=== PATIENT | male | born 1955 | race Caucasian/White ===

== ENCOUNTER → 2023-12-21 09:12 | Outpatient (REF) | payer MEDICARE, OTHER, SELFPAY | LOC: HWRAD 09:12 | PROVIDERS: ATTENDING PHYSICIAN Internal Medicine Hematology & Oncology; FAMILY PHYSICIAN Family Medicine | DX: D69.6 Thrombocytopenia, unspecified (principal) | CPT/HCPCS: 76700 ==

== ENCOUNTER 2024-03-14 03:55 | Inpatient (IN) | payer MEDICARE, OTHER, SELFPAY ==
[2024-03-13] VITALS (7 sets, daily range): BP systolic 117–147; BP diastolic 64–79; BMI 25.7
[2024-03-13 16:44] LABS: % Basophils 0.5 % (0-2); % Eosinophils 0.9 % (0-6); % Immature Granulocytes 0.2 % (0-0.5); % Lymphocytes 14.2 % (20.5-51.1); % Monocytes 14.6 % (1.7-9.3); % Neutrophils 69.6 % (42.2-75.2); Absolute Eosinophils 0.1 10^3/uL (0-0.7); Absolute Lymphocytes 1.1 10^3/uL (1.2-3.4); Absolute Monocytes 1.2 10^3/uL (0.1-0.6); Absolute Neutrophils 5.6 10^3/uL (1.4-6.5); Hematocrit 39.2 % (39.0-52.0); Hemoglobin 13.1 g/dL (13.0-18.0); Mean Corp Hgb Conc. 33.4 g/dL (33.0-37.0); Mean Corpuscular Hgb 31.2 pg (27.0-31.0); Mean Corpuscular Volume 93.3 fL (80.0-94.0); Nucleated Red Blood Cells % 0 % (-); Platelet Count 120 10^3/uL (130-400); Red Cell Dist. Width 12.3 % (11.5-14.5)
[2024-03-13 16:55] LABS: ALT (SGPT) 26 U/L (0-50); AST (SGOT) 25 U/L (17-59); Albumin 4.3 g/dl (3.5-5.0); Alkaline Phosphatase 86 U/L (38-126); Blood Urea Nitrogen 22 mg/dl (9-20); Calcium 9.7 mg/dl (8.4-10.2); Carbon Dioxide 28 mmol/L (22-30); Chloride 101 mmol/L (98-107); Glucose 127 mg/dl (70-99); Potassium 3.8 mmol/L (3.5-5.1); Sodium 138 mmol/L (135-145); Total Bilirubin 0.6 mg/dl (0.2-1.3); Total Protein 6.9 g/dl (6.3-8.2); eGFR > 60.00
[2024-03-13 17:12] LABS: Troponin I < 0.012 ng/ml
[2024-03-13] MEDS: DILAUDID 0.5 MG IV ×2 (19:46→20:53)
[2024-03-13] MEDS: NSS 500 IV (19:47)
[2024-03-13 20:12] LABS: Lipase 98 U/L (23-300)
[2024-03-13 20:15] LABS: D-Dimer 2.13 ug/mlFEU (0.00-0.50)
--- NOTE | 2024-03-13 20:21 | ED.GENMED ---
History of Present Illness
General
Chief Complaint: Chest Pain
Source: patient
Exam Limitations: none
Time Seen by Provider: 03/13/24 19:01
Nursing documentation reviewed up to this point in time: agreed with
Travel History
Have you had any contact with someone who has COVID-19?: No
Do you have any symptoms of coronavirus? Fever > 100 degrees, chills, cough, shortness of breath, sore throat, loss of taste or smell, muscle aches, or headache?: No
History of Present Illness
History of Present Illness:
pt is a 68 y/o M with h/o HTN, HLD, NIDDM newly diagnosed on metformin
here with LUQ pain radiating to L ribs and chest and shoulder x 3 days
says he worked out at the gym in the [facility] but doesn't reczall injury
he noticed with any deep breath, cough, bending over, laugh, etc the pain is bad. if he stays still the pain is better
has had a little constipation, took a dose of doculax and went a little but not normal. no fever, chills, cough, cold, urinary syptoms, nausea, vomiting
pt has had weight loss 20 pounds in the last few months which he attributed to changing his diet and starting metformin
he has had low plt and is scheduled for liver MRI next week
nothing taken for pain today
no rash.
no ches tpain.
Past History
Past History
ED Past Medical History: HTN, Hypercholesterolemia, NIDDM and Other (fatty liver)
Review of Systems
Review of Systems
Allergies reviewed?: Yes
All Other Systems: Not applicable
Phy Exam
Physical Exam
Physical Exam:
GENERAL: Alert , in no apparent distress
EYE: pupils equal and reactive
NECK: Supple
ENT: o/p clr, mmm.
CARDIAC: Regular rate and rhythm .
no murmur
LUNGS: Clear breath sounds bilaterally, no acute respiratory distress, no wheezes/rales/rhonchi
chesrt wall: notnedner to palpation but pain with breathing and movement
ABDOMEN: Soft, veryt mild LUQ tendernesss, no r/g, no cvat, normal bowel sounds
NEUROLOGICAL: Alert and oriented, no focal neuro deficits
SKIN: Warm and dry, skin intact.
MUSCULOSKELETAL: No edema, well perfused. neg edith's sign
PSYCH: Normal and appropriate interaction.
Scores
Heart Score for Chest Pain Patients
STEMI patient?: No
History: Slightly or Non-Suspicious
ECG: Nonspecific Repolarization
Age: >/= 65 years
Risk Factors: >/= 3 Risk Factors or History of CAD
Troponin: </= Normal Limit
Heart Score for Chest Pain Patients: 5
Heart Score Risk: 20.3% MACE over next 6 weeks
Course
Orders/Labs/Results
Orders:
Orders
03/13/24 16:16
Electrocardiogram (*1) Urgent
Reason for Study: Chest Pain
EKG- Treatment ONCE
03/13/24 16:23
Complete Blood Count/With Diff Urgent
Comprehensive Metabolic Panel Urgent
Lipase Urgent
Comment: ADD ON
Troponin I Urgent
03/13/24 19:41
Add On- LAB Urgent
Tests Added?: lipase
0.9% Sodium Chloride 500 ml [Nss] 500 ml IV BOLUS
HYDROmorphone [Dilaudid] 0.5 mg IV NOW STA
03/13/24 19:51
D-Dimer Urgent
03/13/24 20:19
CT Pe/abd/pel W Urgent
Reason For Exam: pleuiritic L ches tpain, + ddimer, weight loss
03/13/24 20:50
HYDROmorphone [Dilaudid] 0.5 mg IV NOW STA
03/13/24 22:06
Urinalysis Reflex To Culture Urgent
Date Specimen was Collected: 03/13/24
Time Specimen was Collected: 21:57
03/14/24 00:57
0.9% Sodium Chloride 1000 ml [Nss] 1,000 ml IV BOLUS
HYDROmorphone [Dilaudid] 1 mg IV NOW STA
Abnormal Lab Results
03/13/24 03/13/24 03/13/24
16:23 19:51 22:06
RBC 4.20 L 10^6/uL
(4.70-6.10)
MCH 31.2 H pg
(27.0-31.0)
Plt Count 120 L 10^3/uL
(130-400)
MPV 12.0 H fL
(7.4-10.4)
Absolute Lymphs (auto) 1.1 L 10^3/uL
(1.2-3.4)
Absolute Monos (auto) 1.2 H 10^3/uL
(0.1-0.6)
Lymphocytes % 14.2 L %
(20.5-51.1)
Monocytes % 14.6 H %
(1.7-9.3)
D-Dimer 2.13 H ug/mlFEU
(0.00-0.50)
BUN 22 H mg/dl
(9-20)
Glucose 127 H mg/dl
(70-99)
Urine Ketones 1+ A
(Negative)
03/13/24 16:23
03/13/24 16:23
Vital Signs
Initial and Last Documented VS:
Initial Vital Signs
Temp Pulse Resp BP Pulse Ox
99.6 F 83 16 147/79 98
03/13/24 16:11 03/13/24 16:11 03/13/24 16:11 03/13/24 16:11 03/13/24 16:11
Last Documented Vital Signs
Temp Pulse Resp BP Pulse Ox
99.9 F 74 15 128/71 94
03/13/24 23:17 03/14/24 02:00 03/14/24 02:00 03/14/24 02:00 03/14/24 02:00
MDM/Problems Addressed
Differential Diagnosis Includes:
PE, divrticulitis, pancreatitis, splenic infarct
MDM/Problems Addressed:
68 y/o M with h/o HTN, HLD has had some mild thrombocytopenia the past few months or so and has seen dr. garcia, neg w/.u; here with L sided abd pain to chest since wednesday, vitals stable, nontender abdomen, splinting on exam, pain with deep breaths;
cta neg for pe
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
small splenic infarct
hepatic lesions
intraabd PARTHA
case d/w vascular regarding splenic infarct; repeat CTA unnecessary at this time; likely all neoplastic process and compression
admit to hospitaist
*Critical Care Note
Total Time (30-74mins, 75-104mins- exclusive of procedures): Not Applicable
ED Attending Note
-
Portions of this chart may have been created with voice recognition software.� Occasional wrong word or��sound alike� substitutions may have occurred due to the inherent limitations of voice recognition software.
Discharge Plan
Departure
Patient Disposition: Admit
Date of Disposition: 03/14/24
Time of Disposition: 00:50
Admit to: Med/Surg
Presentation/result/management discussed w/ accepting MD/DO: Hospitalist
Condition: Fair
Covid-19: Not Applicable
Discharge Problem:
Splenic infarct
Prescriptions:
No Action
metformin 500 mg Tablet
1,000 mg PO DAILY
sildenafil 50 mg Tablet
50 mg PO DAILY
lisinopril-hydrochlorothiazide 20-12.5 mg Tablet
1 tab PO HS
amlodipine 5 mg Tablet
5 mg PO DAILY
folic acid 1 mg Tablet
1 mg PO DAILY
Centrum Silver Tablet
1 tab PO DAILY
rosuvastatin 10 mg Tablet
10 mg PO HS
cyanocobalamin (vitamin B-12) 1,000 mcg Capsule
1,000 mcg PO DAILY
Referrals:
Daniel Bell MD [Family Provider] -
Interventions
Interventions:
*Risk Screen - Suicide Last Done: 03/13/24 16:11
*General Assessment Last Done: 03/13/24 16:11
*Neglect/Abuse Screening Last Done: 03/13/24 16:11
ED- Fall Risk Assessment Last Done: 03/13/24 19:14
*ED COVID-19 Vaccine History Last Done: 03/13/24 19:14
ED- Cardiac Assessment Last Done: 03/13/24 23:19
Discharge Date and Time
Print Language: SENEGALESE
[2024-03-13 22:19] LABS: Urine Albumin Negative (Neg - Trace); Urine Bilirubin Negative (Negative); Urine Character Clear (Clear); Urine Color Yellow; Urine Glucose Negative (Negative); Urine Ketone 1+ (Negative); Urine Leukocyte Negative (Negative); Urine Nitrite Negative (Negative); Urine Occult Blood Negative (Negative); Urine Urobilinogen Negative (Neg - 1+)
[2024-03-14] VITALS (13 sets, daily range): BP systolic 98–150; BP diastolic 62–91; BMI 25.3
[2024-03-14] MEDS: DILAUDID 1 MG IV (01:03)
[2024-03-14] MEDS: NSS 1000 IV (01:03)
[2024-03-14] MEDS: DILAUDID 0.5 MG IV ×4 (03:51→23:45)
--- NOTE | 2024-03-14 05:05 | HPS.HSE ---
Family Physician
-
Family Physician: Daniel Bell
Chief Complaint
-
L abd pain
History of Present Illness
Patient is a 68y M with PMH significant for hypertension and recently diagnosed DM-II who presents to ED complaining of LUQ abdominal pain. Patient states that he initially appreciated discomfort in his LUQ on Wednesday afternoon. He assumed it
was muscular in origin; however, his symptoms did not seem to improve at all with time. Patient noted pain in the LUQ and in the L flank. The pain would occasionally radiate to the lower chest and to the L shoulder. Patient noted that the pain
was worse with deep breathing or with movement / exertion.
He denies any prior history of similar symptoms.
He denies any associated N/V/D, fevers / chills, etc.
Patient states that he was recently seen by Dr. Lujan for thrombocytopenia which has been persistent for about a year or so.
Recent abdominal imaging (US) revealed fatty liver change and suspected hepatic cysts. MRI abdomen was ordered as an outpatient for further evaluation.
Medical History
Past Medical History
Past Medical History: Reports Other
Additional Past Medical History:
Hypertension
DM-II
NAFLD
BRIDGETTE on CPAP
Past Surgical History: Reports Other
Additional Past Surgical History:
Left Forearm ORIF / Subsequent Removal of Hardware
Sinus Surgery
Social History
Tobacco: Non-smoker
Alcohol: Former (Previous social EtOH. Quit alcohol entirely in 10/2023.)
Drug: None
Personal:
Living: With Family
Family History
Family History: Other (Father: Parkinson's Mother: SDAT)
Allergies / Home Medications
Allergies reflects when Allergies were last updated in [facility].
Home Medications with original date entered in [facility]
Allergy/Medication List:
Allergies
Allergy/AdvReac Type Severity Reaction Status Date / Time
Penicillins Allergy Rash Verified 03/13/24 16:15
Home Medications
amlodipine 5 mg tablet 5 mg PO DAILY 03/13/24
cyanocobalamin (vitamin B-12) 1,000 mcg capsule 1,000 mcg PO DAILY 03/13/24
folic acid 1 mg tablet 1 mg PO DAILY 03/13/24
lisinopril 20 mg-hydrochlorothiazide 12.5 mg tablet 1 tab PO HS 03/13/24
metformin 500 mg tablet 1,000 mg PO DAILY 03/13/24
csyzqhatlfxs-opzbpqyw-yubmsx tablet 1 tab PO DAILY 03/13/24
rosuvastatin 10 mg tablet 10 mg PO HS 03/13/24
sildenafil 50 mg tablet 50 mg PO DAILY 03/13/24
Review of Systems
-
History Source: Patient
A 12 point ROS was completed and negative except as noted: Yes
Constitutional: Denies Fever or Chills
EENT: Denies Sore Throat
Respiratory: Denies Cough or Trouble Breathing
Cardiac: Denies Chest Pain or Palpitations
Abdomen/GI: Reports Abdominal Pain; Denies Nausea, Vomiting, Diarrhea, Constipated, Bloody Stools, Black Stools or Anorexia
: Reports Flank Pain; Denies Dysuria or Frequency
Musculoskeletal: Reports Joint Pain (L shoulder); Denies Edema
Neurological: Denies Dizzy or Headache
Psych: Denies Depression or Anxiety
Physical Exam
Vital Signs
Vital Signs
Temp Pulse Resp BP Pulse Ox
99.9 F 73 16 128/71 94
03/13/24 23:17 03/14/24 03:00 03/14/24 03:00 03/14/24 02:00 03/14/24 02:00
Physical Exam
General: Other (68y M in no acute distress.)
HEENT: Moist mucous membranes and PERRLA
Respiratory: Clear; No Wheezes, Rales or Rhonchi
Cardiac: S1/S2 and Regular Rhythm; No Murmur
GI: Soft, Non Tender, Non Distended and Normal Bowel Sounds
Musculoskeletal: No Clubbing, No Cyanosis and No Edema
Neuro: AO x 3 and Nonfocal/grossly intact
Laboratory Results
-
Laboratory Results
Total Bilirubin 0.6 mg/dl (0.2-1.3) 03/13/24 16:23
AST 25 U/L (17-59) 03/13/24 16:23
ALT 26 U/L (0-50) 03/13/24 16:23
Alkaline Phosphatase 86 U/L (38-126) 03/13/24 16:23
Troponin I < 0.012 ng/ml 03/13/24 16:23
Lipase 98 U/L (23-300) 03/13/24 16:23
Impression/Plan
-
A/P: Patient is a 68y M with PMH significant for hypertension and recently diagnosed DM-II who presents to ED complaining of LUQ abdominal pain for the past 3-4 days.
Pancreatic Tail Mass
- Admit for further evaluation and treatment.
- Suspicious for malignant process.
- Check CA 19-9.
- MRI abdomen for further evaluation.
- GI and Oncology evaluations.
- Follow for any new / worsening symptoms.
Splenic Infarct
- Suspect this is the etiology of patient's pain.
- CT suggests pancreatic impingement on a splenic artery with resultant ischemia.
- Pain control / supportive care.
- Vascular Surgery consulted for additional recommendations.
Benign Hypertension
- Stable. Continue amlodipine.
- Hold lisinopril / HCT for now.
- Adjust meds as needed.
DM-II
- New diagnosis.
- Hold metformin acutely.
- Monitor glucose and cover with SSI as needed.
DVT Prophylaxis: SCDs
Code Status: Full
[2024-03-14 06:10] LABS: Hematocrit 34.1 % (39.0-52.0); Hemoglobin 11.4 g/dL (13.0-18.0); Mean Corp Hgb Conc. 33.4 g/dL (33.0-37.0); Mean Corpuscular Hgb 30.9 pg (27.0-31.0); Mean Corpuscular Volume 92.4 fL (80.0-94.0); Platelet Count 102 10^3/uL (130-400); Red Blood Cell Count 3.69 10^6/uL (4.70-6.10); Red Cell Dist. Width 12.2 % (11.5-14.5); White Blood Cell Count 6.5 10^3/uL (4.8-10.8)
[2024-03-14 06:38] LABS: ALT (SGPT) 22 U/L (0-50); AST (SGOT) 20 U/L (17-59); Albumin 3.4 g/dl (3.5-5.0); Alkaline Phosphatase 66 U/L (38-126); Blood Urea Nitrogen 19 mg/dl (9-20); Calcium 8.7 mg/dl (8.4-10.2); Carbon Dioxide 28 mmol/L (22-30); Chloride 104 mmol/L (98-107); Direct Bilirubin 0.2 mg/dl (0.0-0.4); Estimated Creatinine Clearance 85 ml/min; Glucose 140 mg/dl (70-99); Magnesium 1.8 mg/dl (1.6-2.3); Potassium 3.7 mmol/L (3.5-5.1); Sodium 136 mmol/L (135-145); Total Bilirubin 0.5 mg/dl (0.2-1.3); Total Protein 5.8 g/dl (6.3-8.2); eGFR > 60.00
[2024-03-14 07:03] LABS: TSH Reflex To Free T4 2.02 uIU/ml (0.47-4.68)
--- NOTE | 2024-03-14 07:42 | W.PN.HOSP.TC ---
Today's Communication/Plan
-
see bold
Assessment / Plan
Assessment / Plan
HPI: 68y M with PMH significant for hypertension and recently diagnosed DM-II who presents to ED complaining of LUQ abdominal pain. Patient states that he initially appreciated discomfort in his LUQ on Wednesday afternoon. He assumed it was
muscular in origin; however, his symptoms did not seem to improve at all with time.
#Newly found pancreatic tail mass concerning for cancer w/ poss liver mets
Appreciate oncology and GI input, follow-up abdominal MRI
Patient for EUS biopsy today, follow-up CA 19�[address] Lujan
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
Pain control, no need for vascular surgery consult
#Chronic thrombocytopenia
Known to Dr. Lujan
#Newly diagnosed type 2 diabetes
Hold metformin, will need diabetic diet and sliding scale insulin when he is resumed on his diet
#Benign essential hypertension
Continue home lisinopril�hydrochlorothiazide
#DVT prophylaxis�subcu heparin
Full code
Updated family at bedside 03/14
Physical Exam
General: No acute distress
HEENT: Normocephalic, Atraumatic, EOMI, MMM
Respiratory: Clear to Auscultation bilaterally
Cardiac: Normal S1/S2, Regular Rate and Rhythm
GI: Soft, left upper quadrant is tender to palpation
Extremities: No Clubbing, Cyanosis, or Edema
Neuro: Nonfocal/Grossly Intact
Psych: Calm, Cooperative
Derm: No Visible lesions
Anticipated Discharge: 24 - 48 hours
Subjective/Interval History
-
Date of Service: March 14, 2024
Patient continues to have left-sided splenic pain.
Objective Data
-
Labs:
Laboratory Results
03/14/24
05:36
WBC 6.5
Hgb 11.4 L
Hct 34.1 L
Plt Count 102 L
Sodium 136
Potassium 3.7
Chloride 104
Carbon Dioxide 28
BUN 19
Creatinine 0.9
Glucose 140 H
Calcium 8.7
Total Bilirubin 0.5
AST 20
ALT 22
Alkaline Phosphatase 66
Vital Signs:
Vital Signs
Temp Pulse Resp BP Pulse Ox
99.9 F 73 16 128/71 94
03/13/24 23:17 03/14/24 03:00 03/14/24 03:00 03/14/24 02:00 03/14/24 02:00
[2024-03-14 08:30] LABS: Glucose - Point of Care 96 mg/dl (70-99)
[2024-03-14] MEDS: PROTONIX IV IV (08:31)
[2024-03-14] MEDS: NSS (PRESERVATIVE FREE) IV (08:31)
[2024-03-14 08:44] LABS: Glycohemoglobin (HgbA1c) 6.5 % (4.0-5.6)
--- NOTE | 2024-03-14 09:51 | CON.GI ---
Addendum entered and electronically signed by Jesika Pressley Do, MD 03/14/24 14:50:
I saw and examined the patient.
The RECLAMATION KETTLE TENDER's note was reviewed and I agree with the note.
Comment: Gentry is a 68yo M with h/o BRIDGETTE on CPAP and chronic thrombocytopenia who was admitted with acute LUQ abd pain. He has 20lb wt loss and newly diagnosed diabetes. Vitals stable. Mild distress when taking in deep breaths, TTP in epigastric
to LUQ. No jaundice. Labs reviewed LFTs normal. CT AP done with pancreatic tail mass and possible splenic infarction from focal pancreatic mass occlusion of distal splenic arterial branch.
Impression
- Acute abd pain with new pancreatic tail mass and possible splenic infarct from distal splenic arterial branch occlusion
- BRIDGETTE on CPAP
- Fatty liver
- Chronic thrombocytopenia
- DM
Recommendations
- Images reviewed with Dr Holder plan for EUS FNA today
- NPO for now, start IVF with D5
- Plan for diet after above
- LFTs normal, MRI cancel as low likelihood of choledocholithiasis
- Tumor marker pending
Above d/w family bedside, RN and hospitalist. Will follow with you
Original Note:
Consultation
-
Date/Time Consultation Requested: 03/14/24 @ 09:08
Date/Time Consultation Performed: 03/14/24 @ 09:51
Requesting Provider: Erika Miller
Performing Provider: WILLIAMS Polanco; Dr. Jesika Garrido
Reason for Consultation: pancreatic mass, splenic infarct
Medical History
Chief Complaint / HPI
Chief Complaint: LLQ pain
History of Present Illness:
The pt is a 68 yo male with a PMH significant for HTN, hypercholesterolemia, DM2, obstructive sleep apnea with CPAP use, history of colon polyps, mild chronic thrombocytopenia following with Dr. Lujan, who presented to the ER with complaints of LLQ
pain. We are being asked to evaluate for concerning findings of pancreatic mass. Patient reports that he developed acute left lower quadrant pain rating up to the left upper quadrant starting on Wednesday. He is unable to identify any pertinent
triggers of this pain. He notes that he is down about 20 pounds over the past 3-1/2 months but has cut out alcohol completely after being diagnosed with fatty liver disease and has also adjusted his diet to a mostly plant-based diet. He was also
diagnosed recently with diabetes and was placed on metformin as well. He contributes this all to his weight loss. He notes he had been drinking about 4-5 beers per week prior to stopping alcohol completely in October. He otherwise denies any
nausea, vomiting, dysphagia, odynophagia, change in bowel habits, melena, hematochezia, hematemesis, fevers, or chills. He does follow with Dr. Lujan from hematology for a history of mild but chronic thrombocytopenia. He underwent ultrasound
imaging in December which was unrevealing aside from fatty liver disease. He denies any family history of GI cancers or disorders. He denies any use of blood thinners or NSAIDs regularly. He denies any prior EGD. He had a colonoscopy done in
[address] Vance which showed diverticulosis in the entire examined colon and internal hemorrhoids otherwise was normal and was advised on a repeat colonoscopy in 5 years due to history of colon polyps. Upon evaluation in the emergency room he
underwent a CT scan which showed findings concerning for possible metastatic disease with a large 3 cm lesion in the distal pancreatic tail along with a splenic infarct, possible liver mets, and lymphadenopathy. Routine labs on admission showed WBC
8.0, hemoglobin 13.1, platelets 120,000, D-dimer 2.13, sodium 138, potassium 3.8, BUN 22, creatinine 0.9, glucose 127, total bilirubin 0.6, AST 25, ALT 26, alk phos 86, lipase 98, troponin negative x 1, TSH 2.02. He was placed on clear liquid
diet., pending MRI of the abdomen, and is being admitted for further evaluation by GI and oncology.
Past Medical History
Past Medical History: HTN, Hypercholesterolemia, NIDDM and Other (Chronic thrombocytopenia, obstructive sleep apnea)
Past Surgical History: Orthopedic (Remote history of arm surgery) and Other (Sinus surgery)
Social History
Tobacco: Non-Smoker
Alcohol: None
Drug: None
Personal:
Living: With Family
Family History
Family History: Reviewed & Not Pertinent
Allergies / Home Medications
Allergy/AdvReac Type Severity Reaction Status Date / Time
Penicillins Allergy Rash Verified 03/13/24 16:15
�Medication �Instructions �Recorded
amlodipine 5 mg tablet 5 mg PO DAILY 03/13/24
cyanocobalamin (vitamin B-12) 1,000 mcg PO DAILY 03/13/24
1,000 mcg capsule
folic acid 1 mg tablet 1 mg PO DAILY 03/13/24
lisinopril 20 1 tab PO HS 03/13/24
mg-hydrochlorothiazide 12.5 mg
tablet
sktgmfrctzyn-inpployz-vfegwe tablet 1 tab PO DAILY 03/13/24
rosuvastatin 10 mg tablet 10 mg PO HS 03/13/24
sildenafil 50 mg tablet 50 mg PO DAILYPRN PRN ed 03/13/24
metformin 500 mg tablet,extended 1,000 mg PO DAILY 03/14/24
release 24 hr
Review of Systems
-
History Source: Patient
Constitutional: Reports Weight Loss
EENT: Reports No Symptoms
Respiratory: Reports No Symptoms
Cardiac: Reports No Symptoms
Abdomen/GI: Reports Abdominal Pain (Left lower quadrant radiating up to the left upper quadrant)
: Reports No Symptoms
Musculoskeletal: Reports No Symptoms
Skin: Reports No Symptoms
Neurological: Reports No Symptoms
Vital Signs
Temp Pulse Resp BP Pulse Ox
99.9 F 70 16 113/68 98
03/13/24 23:17 03/14/24 08:24 03/14/24 08:24 03/14/24 08:24 03/14/24 08:24
Physical Exam
Exam
General: Well Developed, Well Nourished, No Apparent Distress and Comfortable
HEENT: Normocephalic, Anicteric and Atraumatic
Respiratory: Clear
Cardiac: S1/S2 and Regular Rhythm
Breast: Deferred by me
GI: Soft, Non Distended, Normal Bowel Sounds and Tender (Minimally tender upon palpation to the left upper quadrant)
Musculoskeletal: No Edema
Skin: Warm and Dry
Neuro: Awake, Alert and Oriented
Psych: Calm
Results
WBC 6.5 10^3/uL (4.8-10.8) 03/14/24 05:36
Hgb 11.4 g/dL (13.0-18.0) L 03/14/24 05:36
Hct 34.1 % (39.0-52.0) L 03/14/24 05:36
MCV 92.4 fL (80.0-94.0) 03/14/24 05:36
Plt Count 102 10^3/uL (130-400) L 03/14/24 05:36
Absolute Neuts (auto) 5.6 10^3/uL (1.4-6.5) 03/13/24 16:23
Sodium 136 mmol/L (135-145) 03/14/24 05:36
Potassium 3.7 mmol/L (3.5-5.1) 03/14/24 05:36
Chloride 104 mmol/L (98-107) 03/14/24 05:36
Carbon Dioxide 28 mmol/L (22-30) 03/14/24 05:36
BUN 19 mg/dl (9-20) 03/14/24 05:36
Creatinine 0.9 mg/dL (0.7-1.3) 03/14/24 05:36
Calcium 8.7 mg/dl (8.4-10.2) 03/14/24 05:36
Total Bilirubin 0.5 mg/dl (0.2-1.3) 03/14/24 05:36
AST 20 U/L (17-59) 03/14/24 05:36
ALT 22 U/L (0-50) 03/14/24 05:36
Alkaline Phosphatase 66 U/L (38-126) 03/14/24 05:36
Lipase 98 U/L (23-300) 03/13/24 16:23
Diagnostic Image Results:
03/14/2024 CTA A/P: IMPRESSION: 'CT angiography of the chest is negative for pulmonary embolism. Mild to moderate patchy parenchymal opacity within the posterior lungs bilaterally, most likely atelectasis. Pneumonia is possible but less likely based
on the appearance.The distal pancreatic tail is expansile and has decreased density with loss of expected pancreatic architecture, and this finding is highly suspicious for pancreatic mass/neoplasm/carcinoma. Geographic region of decreased density
within the anterior and inferior aspect of the spleen, compatible with a focal area of splenic infarction. Although not performed as a CT angiography examination of the abdomen, findings are suspicious for focal occlusion of a distal splenic artery
branch by the pancreatic tail mass. There are multiple low-density hepatic lesions within the liver, which are not completely characterized on the basis of this examination. Given the other findings of this examination, these lesions are suspicious
for hepatic metastatic lesions. Further evaluation could be performed with PET/CT scan, and/or MRI of the abdomen. Lymph nodes in the interaortocaval region, with one node measuring up to 13 mm in diameter, slightly enlarged by size criteria, and
could represent neoplastic lymphadenopathy.'
Prior GI Procedures:
EGD: None
Colonoscopy: 05/18/2022, Dr. Vance: Diverticulosis in the entire examined colon, internal hemorrhoids
Assessment / Plan
-
The pt is a 68 yo male with a PMH significant for HTN, hypercholesterolemia, DM2, obstructive sleep apnea with CPAP use, fatty liver disease, history of colon polyps, mild chronic thrombocytopenia following with Dr. Lujan, who presented to the ER
with complaints of LLQ pain, found to have an elevated D-dimer ultimately undergoing a CT angiography of the abdomen and pelvis which was negative for PE but did demonstrate a 3 cm distal pancreatic tail mass concerning for neoplasm along with
suspected splenic infarct suspicious for occlusion of the distal splenic artery branch secondary to the pancreatic tail mass with other findings of low-density hepatic lesions throughout the liver and lymph nodes in the anterior aortocaval region
concerning for metastatic disease. An MRI of the abdomen is pending at this time. He was started on a clear liquid diet and getting IV pain medication. Pending oncology evaluation.
Problem list:
-Left lower quadrant pain, found to have splenic infarct with concerning findings of a distal pancreatic tail mass of 3 and other findings concerning for possible metastatic disease on CT imaging
-Mild chronic thrombocytopenia
-History of fatty liver disease
-Type 2 diabetes
-Hyperlipidemia
-Hypertension
-Obstructive sleep apnea with CPAP use
-History of colon polyp
Recommendations:
-Etiology of left lower quadrant pain likely secondary to findings of a splenic infarct on CT imaging along with a large 3 cm distal pancreatic tail mass.
-Will await MRI imaging of the abdomen for further characterization of CT findings
-Pending MRI to consider EUS with FNA for further evaluation. Will discuss with Dr. Garrido
-Oncology evaluation pending
-Per hospitalist admitting note to consider vascular evaluation given splenic infarct findings
-PRN analgesics as per hospitalist
-I did call MRI to see the timing of the scan, which they did not have available.
-Further plans pending above
Data Reviewed
-
CT Scan: Report Reviewed by me
-
-
Thank you for consultation and allowing me to participate in the patient's care. Please call the dictaphone transcriber GI physician during the after hours with any questions or concerns.
[2024-03-14] MEDS: LIDOCAINE 4% PATCH 1 PATCH TOPICAL (10:20)
[2024-03-14 13:12] LABS: Glucose - Point of Care 70 mg/dl (70-99)
[2024-03-14] MEDS: D5/0.9% SODIUM CHLORIDE 1000 IV ×2 (14:17→23:47)
--- NOTE | 2024-03-14 15:46 | CON.ONC ---
Impression
Impression
Clinical picture concerning for pancreatic cancer, with resulting splenic infarct and possibly liver mets
Recent DM diagnosis
Chronic thrombocytopenia, known to Dr. Lujan
Plan
Plan
For EUS + biopsy today
Await CA19-9
MRI abdomen had been previously scheduled for tomorrow, would keep as planned to assess liver lesions
Known to Dr. Lujan, will arrange f/u with him in the next week or so
Will follow along while hospitalized
Patient History
History of Present Illness
68 yo M w/ recent diagnosis of DM and chronic thrombocytopenia, thought secondary to LEOS, presented with left upper quadrant pain, and imaging showed:
Distal pancreatic tail is expansile and has decreased density with loss of expected pancreatic architecture, and this finding is highly suspicious for pancreatic mass/neoplasm/carcinoma. Geographic region of decreased density within the anterior and
inferior aspect of the spleen, compatible with a focal area of splenic infarction. Although not performed as a CT angiography examination of the abdomen, findings are suspicious for focal occlusion of a distal splenic artery branch by the pancreatic
tail mass. There are multiple low-density hepatic lesions within the liver, which are not completely characterized on the basis of this examination. Given the other findings of this examination, these lesions are suspicious for hepatic metastatic
lesions. Further evaluation could be performed with PET/CT scan, and/or MRI of the abdomen. Lymph nodes in the interaortocaval region, with one node measuring up to 13 mm in diameter, slightly enlarged by size criteria, and could represent
neoplastic lymphadenopathy.
EUS with biopsy is scheduled for later today.
CA19-9 is pending.
He recently lost 20-25 lbs, though has changed his diet and stopped drinking alcohol due to fatty liver and DM diagnosis.
Past-Medical/Surgical History
Past Medical History
Past Medical History: HTN, Hypercholesterolemia, NIDDM and Other (Chronic thrombocytopenia, obstructive sleep apnea)
Past Surgical History: Orthopedic (Remote history of arm surgery) and Other (Sinus surgery)
Social History
Tobacco: Non-Smoker
Alcohol: None
Drug: None
Personal:
Living: With Family
Family History
Family History: Reviewed & Not Pertinent
Patient Medication
�Medication �Instructions �Recorded �Confirmed �Last Taken �Type
amlodipine 5 mg tablet 5 mg PO DAILY Blood Pressure 03/13/24 03/14/24 Unknown History
cyanocobalamin (vitamin B-12) 1,000 mcg PO DAILY Supplement 03/13/24 03/14/24 Unknown History
1,000 mcg capsule
folic acid 1 mg tablet 1 mg PO DAILY Supplement 03/13/24 03/14/24 Unknown History
lisinopril 20 1 tab PO HS Blood Pressure 03/13/24 03/14/24 Unknown History
mg-hydrochlorothiazide 12.5 mg
tablet
pqjkxzitoamt-yyyrpifg-dylsxi tablet 1 tab PO DAILY Supplement 03/13/24 03/14/24 Unknown History
rosuvastatin 10 mg tablet 10 mg PO HS High Cholesterol 03/13/24 03/14/24 Unknown History
sildenafil 50 mg tablet 50 mg PO DAILYPRN PRN ED 03/13/24 03/14/24 Unknown History
metformin 500 mg tablet,extended 1,000 mg PO DAILY Diabetes 03/14/24 03/14/24 Unknown History
release 24 hr
Active Medications
Generic Name Dose Route Start Last Admin
Trade Name Freq PRN Reason Stop Dose Admin
Acetaminophen 650 mg 03/14/24 04:26
Acetaminophen 325 Mg Tablet PO 04/11/24 04:25
Q4HPRN PRN
Mild Pain / Temp > 101
Dextrose 12.5 grams 03/14/24 04:26
Dextrose 50% (0.5 Grams/Ml) 50 Ml Syringe IV 04/11/24 04:25
[id number] PRN
hypoglycemia
Protocol
Glucagon 1 mg 03/14/24 04:26
Glucagon 1 Mg Vial IM 04/11/24 04:25
PRN PRN
hypoglycemia
Protocol
Hydromorphone HCl 0.5 mg 03/14/24 04:26 03/14/24 11:08
Hydromorphone 0.5 Mg/0.5 Ml Syringe IV 03/28/24 04:25 0.5 mg
Q4HPRN PRN Administration
severe pain
Dextrose/Sodium Chloride 1,000 mls @ 100 mls/hr 03/14/24 14:00 03/14/24 14:17
D5/0.9% Sodium Chloride IV 1,000 mls
.Q10H VIJAY Administration
Insulin Aspart 0 units 03/14/24 07:30 03/14/24 13:20
Insulin Aspart Low Resistance 300 Units/3 Ml Pen.Injctr SC 04/11/24 07:29 Not Given
AC VIJAY
Protocol
Lidocaine 1 patch 03/14/24 10:15 03/14/24 10:20
Lidocaine 4% Topical Patch TOPICAL 04/11/24 10:14 1 patch
DAILY VIJAY Administration
Pantoprazole Sodium 40 mg 03/14/24 08:00 03/14/24 08:31
Protonix 40 Mg Iv Push IV 04/11/24 07:59 Not Given
DAILY VIJAY
Sodium Chloride 0 flush 03/14/24 04:00
Sodium Chloride 0.9% (Flush) Syringe IV 04/11/24 03:59
PER PROTOCOL VIJAY
Sodium Chloride 10 ml 03/14/24 08:00 03/14/24 08:31
Sodium Chloride 0.9% (Preservative Free) 10 Ml Vial IV 04/11/24 07:59 Not Given
DAILY VIJAY
Review of Systems
-
All Other Systems: Not reviewed unless documented
Physical Exam
-
General: Well Developed, Well Nourished, No Apparent Distress and Comfortable
HEENT: Negative Jaundice
Skin: Warm and Dry
Psych: Calm and Intact Judgement/Insight
Labs
Lab Results
WBC 6.5 10^3/uL (4.8-10.8) 03/14/24 05:36
RBC 3.69 10^6/uL (4.70-6.10) L 03/14/24 05:36
Hgb 11.4 g/dL (13.0-18.0) L 03/14/24 05:36
Hct 34.1 % (39.0-52.0) L 03/14/24 05:36
MCV 92.4 fL (80.0-94.0) 03/14/24 05:36
MCH 30.9 pg (27.0-31.0) 03/14/24 05:36
MCHC 33.4 g/dL (33.0-37.0) 03/14/24 05:36
RDW 12.2 % (11.5-14.5) 03/14/24 05:36
Plt Count 102 10^3/uL (130-400) L 03/14/24 05:36
MPV 12.0 fL (7.4-10.4) H 03/14/24 05:36
Abs Immat Gran (auto) 0.0 10^3/uL (0-0.05) 03/13/24 16:23
Absolute Neuts (auto) 5.6 10^3/uL (1.4-6.5) 03/13/24 16:23
Absolute Lymphs (auto) 1.1 10^3/uL (1.2-3.4) L 03/13/24 16:23
Absolute Monos (auto) 1.2 10^3/uL (0.1-0.6) H 03/13/24 16:23
Absolute Eos (auto) 0.1 10^3/uL (0-0.7) 03/13/24 16:23
Absolute Basos (auto) 0.0 10^3/uL (0-0.2) 03/13/24 16:23
Immature Gran % 0.2 % (0-0.5) 03/13/24 16:23
Neutrophils % 69.6 % (42.2-75.2) 03/13/24 16:23
Lymphocytes % 14.2 % (20.5-51.1) L 03/13/24 16:23
Monocytes % 14.6 % (1.7-9.3) H 03/13/24 16:23
Eosinophils % 0.9 % (0-6) 03/13/24 16:23
Basophils % 0.5 % (0-2) 03/13/24 16:23
Creatinine 0.9 mg/dL (0.7-1.3) 03/14/24 05:36
Vital Signs
Vital Signs
Temp Pulse Resp BP Pulse Ox
99.9 F 70 16 113/68 98
03/13/24 23:17 03/14/24 08:24 03/14/24 08:24 03/14/24 08:24 03/14/24 08:24
[2024-03-14 16:19] LABS: Glucose - Point of Care 82 mg/dl (70-99)
[2024-03-14 18:30] LABS: Glucose - Point of Care 110 mg/dl (70-99)
[2024-03-14 21:27] LABS: Glucose - Point of Care 169 mg/dl (70-99)
[2024-03-14] MEDS: ORETIC 12.5 MG PO (22:01)
[2024-03-14] MEDS: ZESTRIL 20 MG PO (22:01)
[2024-03-14] MEDS: CRESTOR 10 MG PO (22:01)
[2024-03-15 00:02] VITALS: BP 120/63
[2024-03-15] MEDS: DILAUDID 0.5 MG IV ×2 (05:46→10:02)
[2024-03-15 07:00] VITALS: BP 123/69
--- NOTE | 2024-03-15 07:17 | W.PN.ONC2 ---
Today's Communication / Plan
-
S/P EUS + biopsy yesterday. Await pathology.
Await CA19-9
MRI abdomen
Discussed in general terms treatment options including surgery if localized although if metastatic he would require systemic chemotherapy.
They are very anxious and did not get into more detail pending workup results.
Regarding pain, recommend primary team start low-dose long-acting narcotic such as OxyContin or MS Contin.
I do not see any contraindication to him being discharged with close outpatient follow-up.
35 minutes reviewing basic and treatment.
Impression
Impression
Clinical picture concerning for pancreatic cancer, with resulting splenic infarct and possibly liver mets
Pain possibly from splenic infarction (suspect related to malignancy)
Recent DM diagnosis
Chronic thrombocytopenia, known to Dr. Lujan
Plan
Plan
S/P EUS + biopsy yesterday. Await pathology.
Await CA19-9
MRI abdomen had been previously scheduled for today and will try to transition from outpatient to inpatient scheduling. This is important to better assess liver lesions
Known to Dr. Lujan, will arrange f/u with him in the next week or so.
Discussed in general terms treatment options including surgery if localized although if metastatic he would require systemic chemotherapy.
They are very anxious and did not get into more detail pending workup results. is hoping to get results immediately when we hear about. I explained that this is a challenge logistically.
Regarding pain, recommend primary team start low-dose long-acting narcotic such as OxyContin or MS Contin.
I do not see any contraindication to him being discharged with close outpatient follow-up.
Will follow along while hospitalized
Subjective/Objective
Chief Complaint
ACS Heme Onc
Subjective
Patient and in room. Discussed EUS findings suggestive of a distal pancreatic cancer. Outpatient MRI was actually scheduled for this afternoon today. They were expecting to be told the entire treatment plan when I came in today. I explained
that we need to wait for the pathology, tumor markers, MRI to be sure about this diagnosis, stage, and can then discuss treatment in more appropriate detail. He is eating okay and currently appears to be relatively comfortable although when asked,
says he is having pain and taking pain medications every 4 hours. is asking about getting MRI done while he is in the hospital. She is also asked about getting a PET scan. I explained that we would start with the MRI and that PET scans are
not covered to be done inpatient and likely may not even be needed depending on further workup.
Vital Signs:
Vital Signs
Temp Pulse Resp BP Pulse Ox
98.7 F 70 20 120/63 95
03/14/24 23:02 03/14/24 23:02 03/14/24 23:02 03/14/24 23:02 03/14/24 23:02
Lab Results:
Laboratory Data
WBC 6.5 10^3/uL (4.8-10.8) 03/14/24 05:36
Hgb 11.4 g/dL (13.0-18.0) L 03/14/24 05:36
Plt Count 102 10^3/uL (130-400) L 03/14/24 05:36
eGFR > 60.00 03/14/24 05:36
Physical Exam
HEENT: No Jaundice
Cardiology: S1 and S2
Pulmonary: Clear
GI: Soft
Orders
Orders
Orders From Last 24 Hours
03/15/24 07:16
MRI Abdomen [MR Abdomen W/o & W Contrast] Routine
[2024-03-15 07:23] LABS: Glucose - Point of Care 132 mg/dl (70-99)
[2024-03-15] MEDS: NSS (PRESERVATIVE FREE) 10 ML IV (07:54)
[2024-03-15] MEDS: FOLVITE 1 MG PO (07:55)
[2024-03-15] MEDS: PROTONIX IV 40 MG IV (07:55)
[2024-03-15] MEDS: LIDOCAINE 4% PATCH 1 PATCH TOPICAL (07:55)
[2024-03-15] MEDS: VITAMIN B-12 1000 MCG PO (07:55)
--- NOTE | 2024-03-15 08:19 | W.PN.HOSP.TC ---
Today's Communication/Plan
-
Cleared by GI for discharge today
Assessment / Plan
Assessment / Plan
HPI: 68y M with PMH significant for hypertension and recently diagnosed DM-II who presents to ED complaining of LUQ abdominal pain. Patient states that he initially appreciated discomfort in his LUQ on Wednesday afternoon. He assumed it was
muscular in origin; however, his symptoms did not seem to improve at all with time.
#Newly found pancreatic tail mass concerning for cancer w/ probable metastases to the liver
Appreciate oncology and GI input, status post EUS biopsy 03/14, results pending
Abdominal MRI shows ill-defined hypoenhancement of the tail of the pancreas, highly suspicious for malignant pancreatic mass
CA 19�9 pending
Stable for discharge to follow-up with Dr. Lujan and Dr. Holder in the office
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
Pain control, no need for vascular surgery consult
#Chronic thrombocytopenia
Known to Dr. Lujan
#Newly diagnosed type 2 diabetes
Resume metformin upon discharge
#Benign essential hypertension
Continue home lisinopril�hydrochlorothiazide
#DVT prophylaxis�subcu heparin
Full code
Updated family at bedside 03/15
Physical Exam
General: No acute distress
HEENT: Normocephalic, Atraumatic, EOMI, MMM
Respiratory: Clear to Auscultation bilaterally
Cardiac: Normal S1/S2, Regular Rate and Rhythm
GI: Soft, left upper quadrant is tender to palpation
Extremities: No Clubbing, Cyanosis, or Edema
Neuro: Nonfocal/Grossly Intact
Psych: Calm, Cooperative
Derm: No Visible lesions
Anticipated Discharge: Today
Subjective/Interval History
-
Date of Service: March 15, 2024
Patient reports his left upper quadrant abdominal pain is 6 out of 10 in intensity without meds. He tolerated his diet yesterday. No fever, no vomiting.
Objective Data
-
Vital Signs:
Vital Signs
Temp Pulse Resp BP Pulse Ox
99.2 F 79 16 123/69 96
03/15/24 07:00 03/15/24 08:02 03/15/24 07:00 03/15/24 08:02 03/15/24 07:00
I&O
03/14/24 03/15/24 03/16/24
06:59 06:59 06:59
Intake Total
Balance
[2024-03-15] MEDS: D5/0.9% SODIUM CHLORIDE IV (10:01)
--- NOTE | 2024-03-15 10:41 | W.PN.GI.CBS2 ---
Today's Communication / Plan
-
Diet after MRI
Await pathology from pancreatic FNA. Dr Holder will call pt
GI will sign off please call for questions
Assessment / Plan
-
Getnry is a 68yo M with h/o BRIDGETTE on CPAP and chronic thrombocytopenia who was admitted with acute LUQ abd pain. He has 20lb wt loss and newly diagnosed diabetes. Vitals stable. Mild distress when taking in deep breaths, TTP in epigastric to LUQ.
No jaundice. Labs reviewed LFTs normal. CT AP done with pancreatic tail mass and possible splenic infarction from focal pancreatic mass occlusion of distal splenic arterial branch.
Impression
- Acute abd pain with new pancreatic tail mass and possible splenic infarct from distal splenic arterial branch occlusion
- BRIDGETTE on CPAP
- Fatty liver
- Chronic thrombocytopenia
- DM
Recommendations
- EUS with FNA on 03/14 with likely new diagnosis of pancreatic ca. Cytology pending
- MRI pending per oncology
- Diet afterwards
- Tumor marker pending
Above d/w family bedside, and hospitalist. Dr Holder will call pt with results of pathology from EUS. GI will sign off please call for questions
Subjective
Subjective
Date of Service: March 15, 2024
He feels well post EUS FNA. Abd pain improved on opioids. Tolerated turkey sandwich for dinner last night without issues. NPO for MRI liver today
Objective
Data Reviewed
Laboratory Data:
Laboratory Results
03/14/24 05:36
03/14/24 05:36
Laboratory Results
Magnesium 1.8 mg/dl (1.6-2.3) 03/14/24 05:36
Total Bilirubin 0.5 mg/dl (0.2-1.3) 03/14/24 05:36
AST 20 U/L (17-59) 03/14/24 05:36
ALT 22 U/L (0-50) 03/14/24 05:36
Alkaline Phosphatase 66 U/L (38-126) 05/07/24 05:36
Lipase 98 U/L (23-300) 03/13/24 16:23
Vital Signs and I&O:
Vital Signs
Temp Pulse Resp BP Pulse Ox
99.2 F 79 16 123/69 96
03/15/24 07:00 03/15/24 08:02 03/15/24 07:00 03/15/24 08:02 03/15/24 07:00
I&O
03/14/24 03/15/24 03/16/24
06:59 06:59 06:59
Intake Total
Balance
Physical Exam
Physical Exam
GEN: No acute distress, conversant, pleasant anxious appearing
HEENT: anicteric, extraocular movements intact, clear oropharynx without exudates
GI: soft, non-distended, LUQ tender to palpation, normal active bowel sounds, no hepatosplenomegaly
EXT: warm, well perfused, no edema bilaterally
NEURO: AAOx3, non-focal
[2024-03-15 12:36] LABS: Glucose - Point of Care 112 mg/dl (70-99)
[2024-03-15] MEDS: ROXICODONE 10 MG PO (13:57)
[2024-03-15] MEDS: MIRALAX 17 GRAMS PO (13:59)
--- NOTE | 2024-03-15 14:09 | W.DCSUMMARY ---
Discharge Summary
Discharge Data
Date of Admission: 03/14/24
Date of Discharge: 03/15/24
-
Pending Results: No
Hospital Course
Discharge diagnosis:
Newly found pancreatic tail mass concerning for cancer with probable metastases to the liver
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
Chronic thrombocytopenia
Newly diagnosed type 2 diabetes
Benign essential hypertension
Consults: GI, oncology
Procedures:
03/14/24
EUS pancreatic mass biopsy
Abdominal MRI:
1. Ill-defined hypoenhancement in the tail of the pancreas remains highly suspicious for a malignant pancreatic mass. Soft tissue sampling can be performed for confirmation.
2. Splenic infarction secondary to occlusion of a branch of the distal splenic artery.
3. Multiple liver lesions with imaging characteristics that are most compatible with hepatic metastases.
Hospital course:
68-year-old male with a past medical history newly diagnosed type 2 diabetes, hypertension, and chronic thrombocytopenia presented with left upper quadrant abdominal pain. CT of the abdomen and pelvis showed a possible pancreatic tail mass and
splenic infarction.
Patient was seen in conjunction with GI. He underwent EUS pancreatic mass biopsy. He was also seen in conjunction with oncology. Abd MRI confirms that this area is highly suspicious for a pancreatic tail mass with metastases to the liver. He and
his family were informed of the findings.
He received pain control with IV Dilaudid, and was then transitioned to oral oxycodone. He is medically stable for discharge. GI will call him with the biopsy results. He has been instructed to follow-up with his usual oncologist in the office in
1-2 weeks.
Disposition: Home self-care
Discharge planning: Required 38 minutes
Discharge Plan
-
Patient Disposition: Home (Routine Discharge)
Discharge Diagnosis/Procedures: Pancreatic tail mass concerning for malignancy, probable metastases to the liver, splenic infarction, type 2 diabetes
Condition: Fair
Diet: Diabetic, Carb Controlled
Activity: As tolerated
Driving Restrictions: As prior to admission
Activity Restrictions/Additional Instructions:
You do not have to follow-up with GI. Dr. Holder will call you with the biopsy results.
Please follow-up with your usual oncologist as soon as possible, and your primary care doctor in 1 week.
Referrals:
Ambrocio Lujan DO [Active] - in one to two weeks
Daniel Bell MD [Family Provider] - in one week
Prescriptions:
New
oxycodone 10 mg Tablet
10 mg PO Q4HPRN PRN (Reason: severe pain) Qty: 30 0RF
polyethylene glycol 3350 17 gram/dose powder
17 g PO DAILY Qty: 510 0RF
Continued
sildenafil 50 mg Tablet
50 mg PO DAILYPRN PRN (Reason: ED )
lisinopril-hydrochlorothiazide 20-12.5 mg Tablet
1 tab PO HS
amlodipine 5 mg Tablet
5 mg PO DAILY
folic acid 1 mg Tablet
1 mg PO DAILY
rbiiggyckydy-mnkgmude-cbvnyh Tablet
1 tab PO DAILY
rosuvastatin 10 mg Tablet
10 mg PO HS
cyanocobalamin (vitamin B-12) 1,000 mcg Capsule
1,000 mcg PO DAILY
metformin 500 mg Tablet Extended Release 24 Hr
1,000 mg PO DAILY
Discharge Orders:
Discharge Patient (As Directed); Ordered 03/15/24
Ordered By: Murali Garrido
Discharge Date and Time
Discharge Date/Time: 03/15/24 14:49
Print Language: ARABIC
--- NOTE | 2024-03-15 14:26 | CM ---
CM met with pt and spouse bedside
DC order noted
Pt independent and has a WW at home for use if needed
No needs noted
Discharge Disposition- home, no needs, family transport
[2024-03-15 15:42] LABS: CA 19-9 437 U/mL (<=35)
== END 2024-03-15 14:49 | disposition home or self-care (01) | DRG 436 ==
LOC: 3 WEST ACU 03:55
PROVIDERS: Internal Medicine Gastroenterology; Physician Assistant; Student in an Organized Health Care Education/Training Program; ADMITTING PHYSICIAN Hospitalist; ATTENDING PHYSICIAN Family Medicine; CONSULT PHYSICIAN Internal Medicine Gastroenterology; CONSULT PHYSICIAN Internal Medicine Hematology & Oncology; EMERGENCY PHYSICIAN Emergency Medicine; FAMILY PHYSICIAN Family Medicine
PROC: 0FBG8ZX Excision of Pancreas, Via Natural or Artificial Opening Endoscopic, Diagnostic (ICD-10-PCS; 2024-03-14)
DX: C25.2 Malignant neoplasm of tail of pancreas (principal); C78.7 Secondary malignant neoplasm of liver and intrahepatic bile duct; D73.5 Infarction of spleen; I10 Essential (primary) hypertension; D69.6 Thrombocytopenia, unspecified; E11.9 Type 2 diabetes mellitus without complications
CPT/HCPCS: 88173; 88305; 71275; 74177; 74183; 80053; 81003; 82248; 82962; 83036; 83690; 83735; 84443; 84484; 85025; 85027; 85379; 86301; 93005; 96361; 96374; 96376; 99285; A9575; Q9967

== ENCOUNTER 2024-03-20 08:13 | Outpatient (REF) | payer MEDICARE, OTHER, SELFPAY ==
[2024-03-20] VITALS (9 sets, daily range): BP systolic 51–141; BP diastolic 66–77
[2024-03-20 08:40] LABS: INR 1.08; PT 13.8 Sec (11.4-14.6)
[2024-03-20 09:43] LABS: Glucose - Point of Care 101 mg/dl (70-99)
== END 2024-03-20 14:00 | disposition home or self-care (01) ==
LOC: RADI 08:13
PROVIDERS: ATTENDING PHYSICIAN Internal Medicine Hematology & Oncology; FAMILY PHYSICIAN Family Medicine
DX: C78.7 Secondary malignant neoplasm of liver and intrahepatic bile duct (principal); C25.2 Malignant neoplasm of tail of pancreas; D68.8 Other specified coagulation defects
CPT/HCPCS: 88305; 36415; 47000; 77012; 82962; 85610; 88333; 88341; 88342; 88360; 99152; 99153

== ENCOUNTER → 2024-03-28 07:06 | Outpatient (REF) | payer MEDICARE, OTHER, SELFPAY ==
[2024-03-28 07:22] VITALS: BP 121/79; BP_SYST 65
[2024-03-28 07:23] VITALS: BMI 24.2
[2024-03-28 09:25] VITALS: BP 107/70
== END ==
LOC: RADI 07:06
PROVIDERS: ATTENDING PHYSICIAN Internal Medicine Hematology & Oncology; FAMILY PHYSICIAN Family Medicine
DX: C25.1 Malignant neoplasm of body of pancreas (principal)
CPT/HCPCS: 36561; 76937; 77001; 99152; 99153; C1788

== ENCOUNTER 2024-07-18 01:41 | Inpatient (IN) | payer MEDICARE, OTHER, SELFPAY ==
[2024-07-17 21:39] VITALS: BP 134/60
[2024-07-17 22:40] VITALS: BMI 24.4
[2024-07-17 22:42] VITALS: BP 99/61
[2024-07-17 23:00] VITALS: BP 102/54
--- NOTE | 2024-07-17 23:31 | ED.GENMED ---
History of Present Illness
General
Chief Complaint: Abnormal Lab Value
Source: patient, records and spouse
Exam Limitations: none
Time Seen by Provider: 07/17/24 23:05
Nursing documentation reviewed up to this point in time: agreed with
History of Present Illness
History of Present Illness:
68-year-old male with a past medical history of hypertension, hyperlipidemia, diabetes, pancreatic cancer (currently on chemotherapy, follows with [facility]) who presents to the emergency department for evaluation of anemia. Patient
reports that he is currently undergoing chemotherapy and had last treatment about a week ago (last Wednesday). He says that he had his typical postchemotherapy fatigue and weakness but those symptoms have actually been generally improving, this
morning had lab work drawn and was found to have severe anemia with a hemoglobin of 6.1�he says previous value 2 weeks ago was between 7 and 8. Sent to the ER to be evaluated for transfusion. He does have some positional lightheadedness but denies
any other complaints including chest pain or shortness of breath. He says his fatigue is actually generally improving. Went for a mile walk this morning. He denies any bleeding�has not noticed any black or bloody stools. He is notably on Eliquis
for DVT around his port�he has been on this for 3 weeks.
Past History
Past History
ED Past Medical History: HTN, Hypercholesterolemia, NIDDM and Other (fatty liver)
Review of Systems
Review of Systems
All Other Systems: ROS reviewed and negative except as documented in HPI and ROS
Constitutional: Reports fatigue; Denies fever or chills
Respiratory: Denies cough or trouble breathing
Cardiac: Denies chest pain or palpitations
ABD/GI: Denies abdominal pain, nausea, vomiting, bloody stools or black stools
: Denies flank pain
Musculoskeletal: Denies neck pain or back pain
Neurological: Reports dizzy; Denies headache
Phy Exam
Physical Exam
Physical Exam:
General: Awake, alert, oriented x3; chronically ill-appearing
Head: Normocephalic, atraumatic
Eyes: Conjunctiva pale
Throat: Airway intact, handling secretions
Neck: Trachea midline, supple without meningismus
Lungs: Clear to auscultation bilaterally, no wheezing, rales, rhonchi
Heart: Regular rate and rhythm, no murmurs, gallops, or rubs; right chest wall port
Abd: Soft, non distended, nontender
Rectal: (Confirmed on lab work from earlier today that WBC is normal) Brown stool, Hemoccult positive
Neuro: Cranial nerves grossly intact, speech fluid
Skin: Pale, no rash
Extremities: No edema in extremities, warm and well-perfused
Scores
Heart Failure Risk
Heart Failure Risk Score: Not Applicable
Heart Score for Chest Pain Patients
STEMI patient?: Not applicable
Withdrawal Assessment of Alcohol
Withdrawal Assessment Completed?: Not applicable
Course
Orders/Labs/Results
Orders:
Orders
07/17/24 23:29
Blood Bank Products [* Blood Bank Products] Urgent
Blood Bank Products: *Packed RBC Leuko(PRBC's)
Quantity: 2
Transfuse Today: Yes
Reason: Anemia
07/17/24 23:30
Pantoprazole [Protonix IV] 80 mg IV NOW STA
07/17/24 23:42
Type+Screen Urgent
Complete Blood Count/With Diff Urgent
Comprehensive Metabolic Panel Urgent
PTT Urgent
Prothrombin Time Urgent
07/17/24 23:59
ABO2 Urgent
BBK Wristband Number:
Associate notified that ABO2 has been ordered: [id number]
Date: 07/17/24
Time: 23:50
Bridal Stylist Sales Consultant ID: [id number]
07/18/24 00:08
Prothrombin Complex(Pcc),Human [Kcentra] 1,982.5 unit Empty Viaflex Container 100 ml [Viaflex Empty Container] 0 ml IV NOW
Does patient have a dx of serious acute active bleeding?: Yes
Does patient have prior history of HIT?: No
Abnormal Lab Results
07/17/24
23:42
RBC 1.41 L 10^6/uL
(4.70-6.10)
Hgb 4.7 L* g/dL
(13.0-18.0)
Hct 14.5 L* %
(39.0-52.0)
MCV 102.8 H fL
(80.0-94.0)
MCH 33.3 H pg
(27.0-31.0)
MCHC 32.4 L g/dL
(33.0-37.0)
RDW 17.2 H %
(11.5-14.5)
PT 16.5 H Sec
(11.4-14.6)
07/17/24 23:42
Vital Signs
Initial and Last Documented VS:
Initial Vital Signs
Temp Pulse Resp BP Pulse Ox
36.8 C 96 22 134/60 100
07/17/24 21:39 07/17/24 21:39 07/17/24 21:39 07/17/24 21:39 07/17/24 21:39
Last Documented Vital Signs
Temp Pulse Resp BP Pulse Ox
36.8 C 96 22 134/60 100
07/17/24 21:39 07/17/24 21:39 07/17/24 21:39 07/17/24 21:39 07/17/24 21:39
MDM/Problems Addressed
Differential Diagnosis Includes:
Anemia�could be secondary to chemotherapy, acute blood loss anemia, nutritional deficiency or combination thereof
MDM/Problems Addressed:
68-year-old male who is undergoing chemotherapy for pancreatic cancer presents for evaluation of anemia found on outpatient labs today with hemoglobin of 6.1. He does have fatigue but actually this is generally improving since his chemotherapy
treatment last week, also reports some positional lightheadedness but no other complaints. Heart rate is in the 90s but vital signs otherwise normal. Physical exam as above�notably his Hemoccult was positive although stool appeared brown without
bright red blood. He is on Eliquis for the past 3 weeks for a DVT around his port. Port accessed will send labs including a CBC and a CMP, coags, type and screen. Transfuse 2 units of PRBCs. Treat with Protonix for occult GI bleeding. Plan for
admission pending initial workup. Will discuss with hospitalist regarding anticoagulant reversal�at this point with vital signs stable and only one point drop from his recent hemoglobin baseline I think reasonable to hold off on Kcentra for now.
Hemoglobin returned back at 4.7�this is down from 6.1 drawn this morning�will proceed with anticoagulant reversal with Kcentra given that he has had continued drop in hemoglobin and had positive Hemoccult here (although again he has not noticed any
grossly bloody or black stools). Started on PPI infusion. Fortunately his vital signs are normal�heart rate was initially in the 90s is now in the low 80s and his blood pressure is normal. Continue to monitor closely.
Chronic conditions affecting care:
Pancreatic cancer, DVT
Acute Exacerbation and/or Progression of Chronic Illness:
Acute on chronic anemia managed with blood transfusion
*Pulse Oximetry
Patient hypoxic: no
*Critical Care Note
Total Time (30-74mins, 75-104mins- exclusive of procedures): Not Applicable
Data Reviewed
Source: patient, records and spouse
Patient Management
Discussion with other providers: Hospitalist (Discussed with hospitalist)
Escalation/DeEscalation of care consider admission/obs:
Admission indicated
ED Attending Note
-
Portions of this chart may have been created with voice recognition software.� Occasional wrong word or��sound alike� substitutions may have occurred due to the inherent limitations of voice recognition software.
Discharge Plan
Departure
Prescriptions:
No Action
sildenafil 50 mg Tablet
50 mg PO DAILYPRN PRN (Reason: ED )
lisinopril-hydrochlorothiazide 20-12.5 mg Tablet
1 tab PO HS
amlodipine 5 mg Tablet
5 mg PO DAILY
folic acid 1 mg Tablet
1 mg PO DAILY
mfxjciineige-tdwkwsfs-xdevdc Tablet
1 tab PO DAILY
rosuvastatin 10 mg Tablet
10 mg PO HS
cyanocobalamin (vitamin B-12) 1,000 mcg Capsule
1,000 mcg PO DAILY
metformin 500 mg Tablet Extended Release 24 Hr
1,000 mg PO DAILY
oxycodone 10 mg Tablet
10 mg PO Q4HPRN PRN (Reason: severe pain) Qty: 30 0RF
polyethylene glycol 3350 17 gram/dose powder
17 g PO DAILY Qty: 510 0RF
Referrals:
Emmanuel Latham MD [Family Provider] -
Interventions
Interventions:
*Risk Screen - Suicide Last Done: 07/17/24 21:39
*General Assessment Last Done: 07/17/24 22:40
*Neglect/Abuse Screening Last Done: 07/17/24 21:39
Discharge Date and Time
Print Language: [place]
[2024-07-17] MEDS: PROTONIX IV 80 MG IV (23:49)
[2024-07-18] VITALS (20 sets, daily range): BP systolic 94–126; BP diastolic 57–68; BMI 25.0
[2024-07-18] LABS: Hematocrit 14.5 % (39.0-52.0); Hemoglobin 4.7 g/dL (13.0-18.0); Mean Corp Hgb Conc. 32.4 g/dL (33.0-37.0); Mean Corpuscular Hgb 33.3 pg (27.0-31.0); Mean Corpuscular Volume 102.8 fL (80.0-94.0); Red Blood Cell Count 1.41 10^6/uL (4.70-6.10); Red Cell Dist. Width 17.2 % (11.5-14.5); White Blood Cell Count 9.1 10^3/uL (4.8-10.8)
[2024-07-18 00:02] LABS: INR 1.35; PT 16.5 Sec (11.4-14.6)
[2024-07-18 00:04] LABS: APTT 32.7 Sec (23.4-35.0)
[2024-07-18 00:26] LABS: % Basophils 0.4 % (0-2); % Eosinophils 0.3 % (0-6); % Immature Granulocytes 1.9 % (0-0.5); % Lymphocytes 9.4 % (20.5-51.1); % Monocytes 5.3 % (1.7-9.3); % Neutrophils 82.7 % (42.2-75.2); Absolute Immature Granulocytes 0.2 10^3/uL (0-0.05); Absolute Lymphocytes 0.9 10^3/uL (1.2-3.4); Absolute Monocytes 0.5 10^3/uL (0.1-0.6); Absolute Neutrophils 7.6 10^3/uL (1.4-6.5); Anisocytosis 1+; Normal RBC Morphology No; Nucleated Red Blood Cells % 0 % (-)
[2024-07-18 00:27] LABS: ALT (SGPT) 31 U/L (0-50); AST (SGOT) 27 U/L (17-59); Albumin 3.2 g/dl (3.5-5.0); Alkaline Phosphatase 166 U/L (38-126); Blood Urea Nitrogen 38 mg/dl (9-20); Calcium 8.3 mg/dl (8.4-10.2); Carbon Dioxide 20 mmol/L (22-30); Chloride 106 mmol/L (98-107); Estimated Creatinine Clearance 83 ml/min; Glucose 120 mg/dl (70-99); Hypochromasia 2+; Macrocytosis 1+; Ovalocytes 1+; Potassium 4.5 mmol/L (3.5-5.1); Sodium 140 mmol/L (135-145); Target Cells 1+; Tear Drop Red Blood Cells 1+; Total Bilirubin 0.1 mg/dl (0.2-1.3); Total Protein 5.3 g/dl (6.3-8.2); eGFR > 60.00
[2024-07-18 00:37] LABS: Platelet Count 67 10^3/uL (130-400); Stomatocytes 1+
[2024-07-18] MEDS: KCENTRA 80 UNIT IV (01:30)
--- NOTE | 2024-07-18 01:35 | HPS.HSE ---
Family Physician
-
Family Physician: Emmanuel Lathma
Chief Complaint
-
Abnormal Hgb
History of Present Illness
Patient is a 68y M with PMH significant for recently diagnosed pancreatic cancer who presents to ED for evaluation of worsening anemia. Patient was diagnosed with pancreatic cancer in march 2024. He has been followed at [facility] and is currently on
FOLFIRINOX therapy. His most recent treatment was this past Wednesday (treatment #8). He notes that his dosing has been adjusted previously due to issues with cytopenias. He does receive G-CSF on following his chemo sessions.
Patient notes that his Hgb was 7.2 prior to his last chemo session. He had repeat labs done today as an outpatient and he was called this evening and advised to present to the ED as his Hgb had decreased further.
Patient admits to increased fatigue, weakness and excessive sleepiness over the past week or so. He experiences lightheadedness and fatigue with standing. No chest pain or palpitations.
He has not appreciated any gross bleeding including epistaxis, hemoptysis, melena / hematochezia, etc.
Note: Patient was recently noted to have port-associated thrombus on the R. He was started on Eliquis about one month ago. His most recent dose of this medication was this evening at 6PM.
Medical History
Past Medical History
Past Medical History: Reports Other
Additional Past Medical History:
Pancreatic Cancer
Hypertension
DM-II
MASLD
BRIDGETTE on CPAP
RUE / Port-Associated DVT
Past Surgical History: Reports Other
Additional Past Surgical History:
Left Forearm ORIF / Subsequent Removal of Hardware
Sinus Surgery
R ACW Port Placement
Social History
Tobacco: Non-smoker
Alcohol: Former (Previous social EtOH. Quit alcohol entirely in 10/2023.)
Drug: None
Personal:
Living: With Family
Family History
Family History: Other (Father: Parkinson's Mother: SDAT)
Allergies / Home Medications
Allergies reflects when Allergies were last updated in [facility].
Home Medications with original date entered in [facility]
Allergy/Medication List:
Allergies
Allergy/AdvReac Type Severity Reaction Status Date / Time
Penicillins Allergy Rash Verified 07/17/24 21:42
Home Medications
amlodipine 5 mg tablet 5 mg PO DAILY Blood Pressure 03/13/24
cyanocobalamin (vitamin B-12) 1,000 mcg capsule 1,000 mcg PO DAILY Supplement 03/13/24
folic acid 1 mg tablet 1 mg PO DAILY Supplement 03/13/24
lisinopril 20 mg-hydrochlorothiazide 12.5 mg tablet 1 tab PO HS Blood Pressure 03/13/24
bxdsgqyfoimf-whnrpulx-vpcjcc tablet 1 tab PO DAILY Supplement 03/13/24
rosuvastatin 10 mg tablet 10 mg PO HS High Cholesterol 03/13/24
sildenafil 50 mg tablet 50 mg PO DAILYPRN PRN ED 03/13/24
metformin 500 mg tablet,extended release 24 hr 1,000 mg PO DAILY Diabetes 03/14/24
oxycodone 10 mg tablet 10 mg PO Q4HPRN PRN severe pain #30 tabs 03/15/24
polyethylene glycol 3350 17 gram/dose oral powder 17 g PO DAILY #510 grams 03/15/24
apixaban 5 mg tablet (Eliquis) 5 mg PO BID 07/18/24
Review of Systems
-
History Source: Patient
A 12 point ROS was completed and negative except as noted: Yes
Constitutional: Reports Fatigue; Denies Fever or Chills
EENT: Denies Sore Throat
Respiratory: Reports Trouble Breathing; Denies Cough
Cardiac: Denies Chest Pain or Palpitations
Abdomen/GI: Denies Abdominal Pain, Nausea, Vomiting, Diarrhea, Bloody Stools or Black Stools
: Denies Dysuria, Frequency, Flank Pain or Bleeding
Musculoskeletal: Denies Joint Pain or Edema
Neurological: Reports Dizzy and Other (LE Neuropathy); Denies Headache
Psych: Denies Depression or Anxiety
Physical Exam
Vital Signs
Vital Signs
Temp Pulse Resp BP Pulse Ox
98.2 F 75 13 102/54 100
07/17/24 21:39 07/18/24 00:30 07/18/24 00:30 07/17/24 23:00 07/18/24 00:30
Physical Exam
General: Other (Pale-appearing 68y M in no acute distress.)
HEENT: Moist mucous membranes and PERRLA
Respiratory: Clear; No Wheezes, Rales or Rhonchi
Cardiac: S1/S2 and Regular Rhythm; No Murmur
GI: Soft, Non Tender, Non Distended and Normal Bowel Sounds
Musculoskeletal: No Clubbing, No Cyanosis and No Edema
Skin: Other (R ACW site well-appearing.)
Neuro: AO x 3
Laboratory Results
-
07/17/24 23:42
07/17/24 23:42
Laboratory Results
PT 16.5 Sec (11.4-14.6) H 07/17/24 23:42
INR 1.35 07/17/24 23:42
APTT 32.7 Sec (23.4-35.0) 07/17/24 23:42
Total Bilirubin 0.1 mg/dl (0.2-1.3) L 07/17/24 23:42
AST 27 U/L (17-59) 07/17/24 23:42
ALT 31 U/L (0-50) 07/17/24 23:42
Alkaline Phosphatase 166 U/L (38-126) H 07/17/24 23:42
Impression/Plan
-
A/P: Patient is a 68y M with recently diagnosed pancreatic cancer who presents to ED for evaluation of symptomatic anemia.
Symptomatic Anemia
Pancytopenia
- Admit for further evaluation and treatment.
- Seems most likely that significant anemia is related to chemotherapy and not (entirely) gross blood loss.
- PRBCs ordered in the ED. Continue blood product support until Hgb / symptoms are improved.
- Heme / Onc evaluation for any additional recommendations.
- Follow with up physician at [facility] after discharge for any further necessary dose adjustments.
Heme Positive Stools
- Stool in the ED was brown, heme positive. No gross rectal bleeding, melena, etc.
- May be some degree of GI blood loss here - exacerbated by Eliquis - but seems likely that majority of anemia is related to chemo.
- IV PPI started in the ED.
- Eliquis reversed with KCentra in the ED.
- Hold further Eliquis acutely.
- Will ask GI to evaluate for any additional recommendations.
Pancreatic Cancer
- Followed at [facility] and currently on FOLFIRINOX. Most recent treatment was last Wednesday.
- Continue folate supplementation, etc.
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
- Oncology eval as noted above / Follow-up with [facility] after discharge.
Catheter-Associated DVT
- Patient reports thrombus appreciated on routine imaging done about one month ago.
- Has been on Eliquis since that time.
- Hold acutely given severe / symptomatic anemia at present.
- Resume when able - after any significant blood loss component to anemia has been ruled out / addressed.
Benign Hypertension
- BP currently on the lower side with anemia / fatigue.
- Hold BP medications acutely.
- Follow and resume / adjust regimen as needed.
DM-II
- Stable. Hold oral hypoglycemic medications.
- Follow glucose and cover with SSI as needed.
- Update A1C.
DVT Prophylaxis: SCDs while Eliquis on hold.
Code Status: Full
[2024-07-18] MEDS: PROTONIX 100 IV ×3 (01:44→20:47)
--- NOTE | 2024-07-18 03:20 | PTCARENOTE ---
Pt arrived to [facility] at 03:20 from the ED on a stretcher with a unit of PRBCs infusing by gravity. Pt walked from stretcher to bed. Pt AAxO x4. Pt not c/o any pain. Admission questions and full head to toe assessment complete. Pt oriented to room
and call reyes. Bed locked and in lowest position. Will continue to monitor.
[2024-07-18 08:34] LABS: Hematocrit 19.5 % (39.0-52.0); Hemoglobin 6.5 g/dL (13.0-18.0); Mean Corp Hgb Conc. 33.3 g/dL (33.0-37.0); Mean Corpuscular Volume 92.9 fL (80.0-94.0); Mean Platelet Volume 10.9 fL (7.4-10.4); Platelet Count 53 10^3/uL (130-400); Red Cell Dist. Width 22.2 % (11.5-14.5)
[2024-07-18 08:40] LABS: Blood Urea Nitrogen 31 mg/dl (9-20); Calcium 8.5 mg/dl (8.4-10.2); Carbon Dioxide 24 mmol/L (22-30); Chloride 106 mmol/L (98-107); Estimated Creatinine Clearance 106 ml/min; Glucose 102 mg/dl (70-99); Iron 33 ug/dl (49-181); Potassium 4.1 mmol/L (3.5-5.1); Sodium 139 mmol/L (135-145); eGFR > 60.00
[2024-07-18 08:50] LABS: Percent Saturation 10 % (20-50); Total Iron Binding Capacity 313 ug/dl (261-462)
[2024-07-18] MEDS: FOLVITE 1 MG PO (09:08)
[2024-07-18 09:13] LABS: Glucose - Point of Care 106 mg/dl (70-99)
--- NOTE | 2024-07-18 09:16 | CON.ONC ---
Impression
Impression
Stage IV pancreatic cancer, with liver metastases, on FOLFIRINOX chemotherapy at [facility] since March 2024
Pancytopenia secondary to chemotherapy
Port associated thrombosis, incidentally found on imaging, on Eliquis at admission
Occult heme positive stool
Plan
Plan
Agree with plans to give additional packed red blood cell transfusion today, goal hemoglobin greater than 7
I added on ferritin, would give intravenous iron if ferritin <100
Would continue to hold Eliquis, platelet count likely due to worsen before it improves
Consideration for GI workup; GI team apparently will be discussing his case with his team at [facility]
Further management per [facility] team. We will sign off but remain available if needed for specific questions.
Patient History
History of Present Illness
This is a 68-year-old man with history of pancreatic cancer, metastatic to the liver, diagnosed in March 2024. He is treated at [facility], currently on chemotherapy with FOLFIRINOX. He received his 8 dose on July 11, 2024, with
G-CSF. His treatment course has been complicated by cytopenias, requiring 1 dose delay and recent dose reductions. He has not needed transfusions previously. He reports hemoglobin was 7.2 a chemotherapy last week, and outpatient blood work showed
worsening anemia, and sent to the emergency room for evaluation. CBC showed hemoglobin of 4.7. He was transfused 2 units of packed red blood cells and hemoglobin this morning 6.5. Another unit of blood has been ordered. His white blood cell
count is 6 and platelet count is 53.
Heme testing of stools was positive, but no koko bleeding. He has been on Eliquis for incidentally found port associated thrombosis, for approximately 1 month. Eliquis was held and reversed with Kcentra.
He was seen by GI, who plans to speak with his outpatient oncologist regarding consideration for further workup.
He has been tolerating chemotherapy well, tells me that interim PET scan over the summer showed a positive response to treatment. His tumor marker is trending down significantly. He has had weight gain after initial weight loss, and chemo-induced
peripheral neuropathy.
Past-Medical/Surgical History
Past medical history, as per the HPI. Also hypertension, hyperlipidemia and sleep apnea.
Social history: Social alcohol, non-smoker, .
Patient Medication
�Medication �Instructions �Recorded �Confirmed �Last Taken �Type
amlodipine 5 mg tablet 5 mg PO DAILY Blood Pressure 03/13/24 07/18/24 03/19/24 History
cyanocobalamin (vitamin B-12) 1,000 mcg PO DAILY Supplement 03/13/24 07/18/24 03/19/24 History
1,000 mcg capsule
folic acid 1 mg tablet 1 mg PO DAILY Supplement 03/13/24 07/18/24 03/19/24 History
lisinopril 20 1 tab PO HS Blood Pressure 03/13/24 07/18/24 03/19/24 History
mg-hydrochlorothiazide 12.5 mg
tablet
rnmmxtlxsfbe-burmorux-xyluwi tablet 1 tab PO DAILY Supplement 03/13/24 07/18/24 03/19/24 History
rosuvastatin 10 mg tablet 10 mg PO HS High Cholesterol 03/13/24 07/18/24 03/19/24 History
sildenafil 50 mg tablet 50 mg PO DAILYPRN PRN ED 03/13/24 07/18/24 Unknown History
metformin 500 mg tablet,extended 1,000 mg PO DAILY Diabetes 03/14/24 07/18/24 03/19/24 History
release 24 hr
oxycodone 10 mg tablet 10 mg PO Q4HPRN PRN severe pain 03/15/24 07/18/24 Unknown Rx
#30 tabs
polyethylene glycol 3350 17 17 g PO DAILY #510 grams 03/15/24 07/18/24 03/19/24 Rx
gram/dose oral powder
apixaban 5 mg tablet (Eliquis) 5 mg PO BID 07/18/24 07/18/24 07/17/24 18:00 History
Active Medications
Generic Name Dose Route Start Last Admin
Trade Name Freq PRN Reason Stop Dose Admin
Acetaminophen 650 mg 07/18/24 03:24
Acetaminophen 325 Mg Tablet PO 08/15/24 03:23
Q4HPRN PRN
Mild Pain / Temp > 101
Dextrose 12.5 grams 07/18/24 03:24
Dextrose 50% (0.5 Grams/Ml) 50 Ml Syringe IV 08/15/24 03:23
[id number] PRN
hypoglycemia
Protocol
Folic Acid 1 mg 07/18/24 08:00 07/18/24 09:08
Folic Acid 1 Mg Tablet PO 08/15/24 07:59 1 mg
DAILY VIJAY Administration
Glucagon 1 mg 07/18/24 03:24
Glucagon 1 Mg Vial IM 08/15/24 03:23
PRN PRN
hypoglycemia
Protocol
Pantoprazole Sodium 80 mg in 100 mls @ 10 mls/hr 07/18/24 00:15 07/18/24 01:44
Protonix IV 100 mls
Q10H VIJAY Administration
8 MG/HR
Insulin Aspart 0 units 07/18/24 07:30 07/18/24 09:12
Insulin Aspart Low Resistance 300 Units/3 Ml Pen.Injctr SC 08/15/24 07:29 Not Given
AC VIJAY
Protocol
Rosuvastatin Calcium 10 mg 07/18/24 22:00
Rosuvastatin (Crestor) 10 Mg Tablet PO 08/15/24 21:59
HS VIJAY
Sodium Chloride 0 flush 07/18/24 06:00
Sodium Chloride 0.9% (Flush) Syringe IV 08/15/24 05:59
PER PROTOCOL VIJAY
Review of Systems
-
All Other Systems: Reviewed and Negative
Physical Exam
-
General: Well Developed, Well Nourished, No Apparent Distress, Comfortable and Conversant
HEENT: Moist Mucous Membranes; Negative Jaundice
Cardiology: Normal Sinus Rhythm
Pulmonary: Clear; Negative Wheezes or Rales
GI: Soft, Normal Bowel Sounds and No Organomegaly; Negative Distended
Musculoskeletal: No Clubbing, No Cyanosis and No Edema
Neurology: Non Focal, No Lateralizing Symptoms and No Word Finding Difficulty
Skin: Warm and Dry
Hematologic / Lymphatic: No Lymphadenopathy
Psych: Calm and Intact Judgement/Insight
Labs
Lab Results
WBC 6.0 10^3/uL (4.8-10.8) 07/18/24 07:51
RBC 2.10 10^6/uL (4.70-6.10) L 07/18/24 07:51
Hgb 6.5 g/dL (13.0-18.0) L* D 07/18/24 07:51
Hct 19.5 % (39.0-52.0) L* 07/18/24 07:51
MCV 92.9 fL (80.0-94.0) 07/18/24 07:51
MCH 31.0 pg (27.0-31.0) 07/18/24 07:51
MCHC 33.3 g/dL (33.0-37.0) 07/18/24 07:51
RDW 22.2 % (11.5-14.5) H 07/18/24 07:51
Plt Count 53 10^3/uL (130-400) L D 07/18/24 07:51
MPV 10.9 fL (7.4-10.4) H 07/18/24 07:51
Abs Immat Gran (auto) 0.2 10^3/uL (0-0.05) H 07/17/24 23:42
Absolute Neuts (auto) 7.6 10^3/uL (1.4-6.5) H 07/17/24 23:42
Absolute Lymphs (auto) 0.9 10^3/uL (1.2-3.4) L 07/17/24 23:42
Absolute Monos (auto) 0.5 10^3/uL (0.1-0.6) 07/17/24 23:42
Absolute Eos (auto) 0.0 10^3/uL (0-0.7) 07/17/24 23:42
Absolute Basos (auto) 0.0 10^3/uL (0-0.2) 07/17/24 23:42
Immature Gran % 1.9 % (0-0.5) H 07/17/24 23:42
Neutrophils % 82.7 % (42.2-75.2) H 07/17/24 23:42
Lymphocytes % 9.4 % (20.5-51.1) L 07/17/24 23:42
Monocytes % 5.3 % (1.7-9.3) 07/17/24 23:42
Eosinophils % 0.3 % (0-6) 07/17/24 23:42
Basophils % 0.4 % (0-2) 07/17/24 23:42
Creatinine 0.7 mg/dL (0.7-1.3) 07/18/24 07:51
Vital Signs
Vital Signs
Temp Pulse Resp BP Pulse Ox
98.0 F 74 18 119/68 99
07/18/24 07:30 07/18/24 07:30 07/18/24 07:30 07/18/24 07:30 07/18/24 07:30
[2024-07-18 09:23] LABS: Glycohemoglobin (HgbA1c) 5.4 % (4.0-5.6)
[2024-07-18 09:39] LABS: Folate > 20.0 ng/ml (2.76-20); Vitamin B12 > 1000 pg/ml (239-931)
--- NOTE | 2024-07-18 10:07 | CON.GI ---
Consultation
-
Date/Time Consultation Requested: 07/18/24
Date/Time Consultation Performed: 07/18/24
Requesting Provider: Dr. José Koenig
Performing Provider: Dr. Myrtle Pryor
Reason for Consultation: Anemia, black stool
Medical History
Chief Complaint / HPI
Chief Complaint: anemia
History of Present Illness:
Gentry Gregory is a 68 y.o. male w/ pmhx pancreatic cancer w/ liver mets (dx 03/2024) currently being managed at [facility] with FOLFIRINOX who presents for anemia found on outpatient labs. Hemoglobin found to be 4.7, previously 7.2 last week. He was
transfused with 2 units PRBC with adequate response to 6.5 this morning. Additional unit of blood ordered. He was started on Eliquis in early June 09 port-associated thromboses, reports having 2 black stools, one of which occured earlier this
morning. Otherwise, his has no GI complaints-- denies nausea, vomiting, abdominal pain, change in bowel habits or hematochezia. Heme testing in the ER was positive. He is hemodynamically stable. No prior EGD. Eliquis held on admission, last dose was
yester 07/17. He was given KCentra on admission. Started on PPI gtt.
Last dose of FOLFIRNOX given 07/11, with G-CSF.
Hgb 4.7 --> 6.5 s/p 2 units PRBC; MCV 102.8, WBC 9.1 --> 6, Plt 67 --> 53
BUN 38 -->31, Cr. 0.9
Fe 33, TIBC 313, %sat 10, Ferritin pending
Tbili 0.1, AST 27, ALT 31, Alk phos 166
EUS 03/14/2024: A mass was identified in the pancreatic tail, stage T2 Nx Mx by endosonographic criteria. FNA performed
Colonoscopy 05/18/2022: Multiple diverticula in the entire colon. Internal hemorrhoids found on retroflexion, otherwise normal study. Recommend repeat in 5 years.
Colonoscopy 09/01/2016: 6 mm tubular adenoma in the sigmoid colon. Diverticulosis in the sigmoid and descending colon. Multiple hyperplastic polyps in the rectum.
Colonoscopy 10/04/2013: Hyperplastic polyps in the rectum. Sigmoid diverticulosis. Internal hemorrhoids. Repeat colon in 3 years.
Past Medical History
Past Medical History: Cancer (pancreatic cancer), HTN, Hypercholesterolemia and Other (MASLD, BRIDGETTE, DVT)
Social History
Tobacco: Non-Smoker
Alcohol: Other (social)
Drug: None
Personal:
Living: With Family
Family History
Family History: Reviewed & Not Pertinent
Allergies / Home Medications
Allergy/AdvReac Type Severity Reaction Status Date / Time
Penicillins Allergy Rash Verified 07/17/24 21:42
�Medication �Instructions �Recorded
amlodipine 5 mg tablet 5 mg PO DAILY Blood Pressure 03/13/24
cyanocobalamin (vitamin B-12) 1,000 mcg PO DAILY Supplement 03/13/24
1,000 mcg capsule
folic acid 1 mg tablet 1 mg PO DAILY Supplement 03/13/24
lisinopril 20 1 tab PO HS Blood Pressure 03/13/24
mg-hydrochlorothiazide 12.5 mg
tablet
ybnjlriszbqe-qgkeonpb-wbtwpu tablet 1 tab PO DAILY Supplement 03/13/24
rosuvastatin 10 mg tablet 10 mg PO HS High Cholesterol 03/13/24
sildenafil 50 mg tablet 50 mg PO DAILYPRN PRN ED 03/13/24
metformin 500 mg tablet,extended 1,000 mg PO DAILY Diabetes 03/14/24
release 24 hr
oxycodone 10 mg tablet 10 mg PO Q4HPRN PRN severe pain 03/15/24
#30 tabs
polyethylene glycol 3350 17 17 g PO DAILY #510 grams 03/15/24
gram/dose oral powder
apixaban 5 mg tablet (Eliquis) 5 mg PO BID 07/18/24
Review of Systems
-
History Source: Patient and Family
All other systems: A 12 pt ROS was Negative except as stated above in HPI
Vital Signs
Temp Pulse Resp BP Pulse Ox
98.0 F 74 18 119/68 99
07/18/24 07:30 07/18/24 07:30 07/18/24 07:30 07/18/24 07:30 07/18/24 07:30
Physical Exam
Exam
General: Well Developed, Well Nourished and No Apparent Distress
GI: Soft, Non Tender, Non Distended and Normal Bowel Sounds
Results
WBC 6.0 10^3/uL (4.8-10.8) 07/18/24 07:51
Hgb 6.5 g/dL (13.0-18.0) L* D 07/18/24 07:51
Hct 19.5 % (39.0-52.0) L* 07/18/24 07:51
MCV 92.9 fL (80.0-94.0) 07/18/24 07:51
Plt Count 53 10^3/uL (130-400) L D 07/18/24 07:51
Absolute Neuts (auto) 7.6 10^3/uL (1.4-6.5) H 07/17/24 23:42
PT 16.5 Sec (11.4-14.6) H 07/17/24 23:42
INR 1.35 07/17/24 23:42
APTT 32.7 Sec (23.4-35.0) 07/17/24 23:42
Sodium 139 mmol/L (135-145) 07/18/24 07:51
Potassium 4.1 mmol/L (3.5-5.1) 07/18/24 07:51
Chloride 106 mmol/L (98-107) 07/18/24 07:51
Carbon Dioxide 24 mmol/L (22-30) 07/18/24 07:51
BUN 31 mg/dl (9-20) H 07/18/24 07:51
Creatinine 0.7 mg/dL (0.7-1.3) 07/18/24 07:51
Calcium 8.5 mg/dl (8.4-10.2) 07/18/24 07:51
Total Bilirubin 0.1 mg/dl (0.2-1.3) L 07/17/24 23:42
AST 27 U/L (17-59) 07/17/24 23:42
ALT 31 U/L (0-50) 07/17/24 23:42
Alkaline Phosphatase 166 U/L (38-126) H 07/17/24 23:42
Diagnostic Image Results:
Prior GI Procedures:
EGD:
Colonoscopy:
Assessment / Plan
-
68 y.o. male w/ pmhx pancreatic cancer w/ liver mets (dx 03/2024) on FOLFIRINOX w/ course complicated by port-associated thrombus on eliquis presents with anemia and black stool concerning for GI bleeding.
#Anemia, black stool- c/f UGI bleed vs. small bowel vs. right colonic source, recently started on Eliquis
-Hgb 4.7 --> 6.5, s/p 2 units of PRBC, pending additional unit
-he remains hemodynamically stable
-2 large peripheral gauge IVs, IVF
-active T&C
-Last dose eliquis on 07/17, given kcentra in ED
-discussed with both oncologist at [facility] (Dr. Yanes) and patient/family, will plan to perform EGD tomorrow for further evaluation
-PPI gtt
-okay for clears, NPO PMN
-ferritin pending, per oncology, give IV iron if <100
Data Reviewed
-
Time spent with patient (in minutes): >75 minutes speaking with patient, family and outpatient oncologist
-
-
Thank you for consultation and allowing me to participate in the patient's care. Please call the [facility] physician during the after hours with any questions or concerns.
--- NOTE | 2024-07-18 10:15 | W.PN.UPDATE ---
Update Note
Progress Note Update
Nonbillable note. Seen and examined independent of overnight physician. Denies feeling lightheaded dizzy or fatigued. Denies any hematuria or hematochezia or melanotic stools.
General: Other (Pale-appearing 68y M in no acute distress.)
HEENT: Moist mucous membranes and PERRLA
Respiratory: Clear; No Wheezes, Rales or Rhonchi
Cardiac: S1/S2 and Regular Rhythm; No Murmur
GI: Soft, Non Tender, Non Distended and Normal Bowel Sounds
Musculoskeletal: No Clubbing, No Cyanosis and No Edema
Skin: Other (R ACW site well-appearing.)
Neuro: AO x 3
A/P: Patient is a 68y M with recently diagnosed pancreatic cancer who presents to ED for evaluation of symptomatic anemia.
Symptomatic Anemia
Pancytopenia
- Admit for further evaluation and treatment.
- Seems most likely that significant anemia is related to chemotherapy and not (entirely) gross blood loss.
- Hgb 6.5 and will order additional unit of PRBC and recheck h/h afterwards.
- Heme / Onc evaluation for any additional recommendations.
- Follow with up physician at [facility] after discharge for any further necessary dose adjustments.
Heme Positive Stools
- Stool in the ED was brown, heme positive. No gross rectal bleeding, melena, etc.
- May be some degree of GI blood loss here - exacerbated by Eliquis - but seems likely that majority of anemia is related to chemo.
- IV PPI started in the ED.
- Eliquis reversed with KCentra in the ED.
- Hold further Eliquis acutely.
- Will ask GI to evaluate for any additional recommendations.
Pancreatic Cancer
- Followed at [facility]] and currently on FOLFIRINOX. Most recent treatment was last Wednesday.
- Continue folate supplementation, etc.
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
- Oncology eval as noted above / Follow-up with [facility]] after discharge.
Catheter-Associated DVT
- Patient reports thrombus appreciated on routine imaging done about one month ago.
- Has been on Eliquis since that time.
- Hold acutely given severe / symptomatic anemia at present.
- Resume when able - after any significant blood loss component to anemia has been ruled out / addressed.
Benign Hypertension
- BP currently on the lower side with anemia / fatigue.
- Hold BP medications acutely.
- Follow and resume / adjust regimen as needed.
DM-II
- Stable. Hold oral hypoglycemic medications.
- Follow glucose and cover with SSI as needed.
- Update A1C.
DVT Prophylaxis: SCDs while Eliquis on hold.
Code Status: Full
Discussed with multiple family members at bedside.
[2024-07-18 12:07] LABS: Glucose - Point of Care 118 mg/dl (70-99)
--- NOTE | 2024-07-18 14:47 | CM ---
Met with pt and his at bedside
Pt lives with his in a 2 story home; 2 steps to enter, 10 steps to 2nd fl
Independent, retired, driving
DME - CPAP
SNF/HH - denies past hx
Has ride at discharge
PCP - Emmanuel Latham
Pharm - [facility]
CM will follow for d/c needs
Plan - anticipate home no needs when medically ready
[2024-07-18] MEDS: DULCOLAX 10 MG PO (15:59)
[2024-07-18] MEDS: MIRALAX 51 GRAMS PO ×3 (16:01→21:54)
[2024-07-18 16:36] LABS: Hematocrit 22.4 % (39.0-52.0); Hemoglobin 7.5 g/dL (13.0-18.0)
[2024-07-18 17:33] LABS: Glucose - Point of Care 86 mg/dl (70-99)
[2024-07-18 21:30] LABS: Glucose - Point of Care 99 mg/dl (70-99)
[2024-07-18] MEDS: CRESTOR 10 MG PO (22:00)
[2024-07-19] VITALS (7 sets, daily range): BP systolic 14–131; BP diastolic 57–70; PULSE 76–90
[2024-07-19 05:49] LABS: Glucose - Point of Care 109 mg/dl (70-99)
[2024-07-19] MEDS: PROTONIX 100 IV (06:15)
[2024-07-19] MEDS: FOLVITE PO (07:50)
[2024-07-19 10:24] LABS: Hematocrit 23.1 % (39.0-52.0); Hemoglobin 7.7 g/dL (13.0-18.0); Mean Corp Hgb Conc. 33.3 g/dL (33.0-37.0); Mean Corpuscular Hgb 31.2 pg (27.0-31.0); Mean Corpuscular Volume 93.5 fL (80.0-94.0); Mean Platelet Volume 11.6 fL (7.4-10.4); Platelet Count 46 10^3/uL (130-400); Red Blood Cell Count 2.47 10^6/uL (4.70-6.10); Red Cell Dist. Width 20.1 % (11.5-14.5); White Blood Cell Count 5.8 10^3/uL (4.8-10.8)
[2024-07-19 11:08] LABS: % Eosinophils 0.3 % (0-6); % Immature Granulocytes 1.4 % (0-0.5); % Lymphocytes 8.7 % (20.5-51.1); % Monocytes 7.4 % (1.7-9.3); % Neutrophils 81.2 % (42.2-75.2); Absolute Basophils 0.1 10^3/uL (0-0.2); Absolute Immature Granulocytes 0.1 10^3/uL (0-0.05); Absolute Lymphocytes 0.5 10^3/uL (1.2-3.4); Absolute Monocytes 0.4 10^3/uL (0.1-0.6); Absolute Neutrophils 4.7 10^3/uL (1.4-6.5); Nucleated Red Blood Cells % 0 % (-)
--- NOTE | 2024-07-19 11:30 | W.PN.HOSP.TC ---
Addendum entered and electronically signed by Adrian Holt MD 07/19/24 13:53:
Discussed case with oncology Dr. Astudillo and okay to restart Eliquis as gastrointestinal workup was negative.
Discussed case with GI plan for outpatient video capsule endoscopy and okay for discharge. GI discussed with patient primary oncology at [facility]
More than 30 minutes spent in discharge including
Final examination of the patient
Summarizing hospital stay
Instructions for continuing care to all relevant caregivers
Preparation of discharge records, prescriptions, and referral forms
Total time spent (in minutes): 58
Original Note:
Today's Communication/Plan
-
EGD/Colon
GI recs
Assessment / Plan
Assessment / Plan
General: Other (Pale-appearing 68y M in no acute distress.)
HEENT: Moist mucous membranes and PERRLA
Respiratory: Clear; No Wheezes, Rales or Rhonchi
Cardiac: S1/S2 and Regular Rhythm; No Murmur
GI: Soft, Non Tender, Non Distended and Normal Bowel Sounds
Musculoskeletal: No Clubbing, No Cyanosis and No Edema
Skin: Other (R ACW site well-appearing.)
Neuro: AO x 3
A/P: Patient is a 68y M with recently diagnosed pancreatic cancer who presents to ED for evaluation of symptomatic anemia.
Symptomatic Anemia
Pancytopenia
- Admit for further evaluation and treatment.
- Seems most likely that significant anemia is related to chemotherapy and not (entirely) gross blood loss.
- Hgb 7.7 s/p 3u of PRBC so far. Ferritin >100.
- Heme / Onc evaluation for any additional recommendations.
- Follow with up physician at [facility] after discharge for any further necessary dose adjustments.
Heme Positive Stools
- Stool in the ED was brown, heme positive. No gross rectal bleeding, melena, etc.
- May be some degree of GI blood loss here - exacerbated by Eliquis - but seems likely that majority of anemia is related to chemo.
- IV PPI started in the ED.
- Eliquis reversed with KCentra in the ED.
- Hold further Eliquis acutely.
- Plan for EGD/Colon later today.
- Await further Gi recs post procedure. Restart Eliquis pending GI clearance.
Pancreatic Cancer
- Followed at [facility] and currently on FOLFIRINOX. Most recent treatment was last week.
- Continue folate supplementation, etc.
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
- Oncology eval as noted above / Follow-up with [facility] after discharge.
Catheter-Associated DVT
- Patient reports thrombus appreciated on routine imaging done about one month ago.
- Has been on Eliquis since that time.
- Hold acutely given severe / symptomatic anemia at present.
- Resume when able - after any significant blood loss component to anemia has been ruled out / addressed.
Benign Hypertension
- Restart BP with hold parameters.
- Follow and resume / adjust regimen as needed.
DM-II
- Stable. Hold oral hypoglycemic medications.
- Follow glucose and cover with SSI as needed.
.
DVT Prophylaxis: SCDs while Eliquis on hold.
Code Status: Full
Discussed with multiple family members at bedside.
Anticipated Discharge: Within 24 hours
Subjective/Interval History
-
Date of Service: July 19, 2024
no abd pain
Objective Data
-
Labs:
Laboratory Results
07/19/24
09:51
WBC 5.8
Hgb 7.7 L
Hct 23.1 L
Plt Count 46 L
Vital Signs:
Vital Signs
Temp Pulse Resp BP Pulse Ox
98.0 F 64 18 116/69 98
07/19/24 07:15 07/19/24 07:15 07/19/24 07:15 07/19/24 07:15 07/19/24 07:15
I&O
07/18/24 07/19/24 07/20/24
06:59 06:59 06:59
Intake Total 500 / 500 2660 / 2660
Balance 500 / 500 2660 / 2660
[2024-07-19 12:01] LABS: Glucose - Point of Care 107 mg/dl (70-99)
--- NOTE | 2024-07-19 12:26 | CM ---
Case management following for discharge needs
Chart reviewed
Had endoscopy and colonoscopy today
GI following
[facility] for cancer treatment
Plan - anticipate home no needs when medically stable
--- NOTE | 2024-07-19 12:35 | PTCARENOTE ---
Received patient from GI/[facility] AAOx[facility], no c/o pain. Patient eating sandwich and tolerating PO liquids. Spouse and family at bedside. Patient eager to gome home, physician made aware.
--- NOTE | 2024-07-19 13:52 | W.DCSUMMARY ---
Discharge Summary
Discharge Data
Date of Admission: 07/18/24
Date of Discharge: 07/19/24
-
Pending Results: No
Hospital Course
68-year-old male past medical history of diabetes, hypertension, catheter associated DVT, pancreatic cancer on chemotherapy, was presenting from home with weakness. Patient was found to symptomatic anemia with severely low hemoglobin admission.
Required 2 L PRBC hemoglobin up trended to 7.7. GI was consulted. Patient was on a PPI. Patient on Eliquis status post reversal Kcentra in the ER. Patient underwent endoscopy colonoscopy with no active signs of bleeding. Patient will follow-up
with GI as outpatient for video capsule study. Discussed case with oncology Dr. Astudillo and andrea to restart Eliquis as gastrointestinal workup was negative. Discussed case with GI plan for outpatient video capsule endoscopy and andrea for discharge.
GI discussed with patient primary oncology at [facility].
Discharge Plan
-
Patient Disposition: Home (Routine Discharge)
Discharge Diagnosis/Procedures: Symptomatic Anemia
Pancytopenia
Blood transfusion
s/p EGD and colonoscopy
Condition: Fair
Diet: As tolerated
Activity: As tolerated
Driving Restrictions: As prior to admission
Blood Work: cbc in 1 week via primary doctor or oncology
Referrals:
Cheli Pryor DO [Active] - None (f/u for video capsule endoscopy)
Emmanuel Latham MD [Family Provider] -
Prescriptions:
Continued
sildenafil 50 mg Tablet
50 mg PO DAILYPRN PRN (Reason: ED )
lisinopril-hydrochlorothiazide 20-12.5 mg Tablet
1 tab PO HS
amlodipine 5 mg Tablet
5 mg PO DAILY
folic acid 1 mg Tablet
1 mg PO DAILY
gksggvtnjtrg-pdwmyari-kaqcoc Tablet
1 tab PO DAILY
rosuvastatin 10 mg Tablet
10 mg PO HS
cyanocobalamin (vitamin B-12) 1,000 mcg Capsule
1,000 mcg PO DAILY
metformin 500 mg Tablet Extended Release 24 Hr
1,000 mg PO DAILY
oxycodone 10 mg Tablet
10 mg PO Q4HPRN PRN (Reason: severe pain) Qty: 30 0RF
polyethylene glycol 3350 17 gram/dose powder
17 g PO DAILY Qty: 510 0RF
Eliquis 5 mg Tablet
5 mg PO BID
Discharge Orders:
Discharge Patient (As Directed); Ordered 07/19/24
Ordered By: Adrian Holt
Discharge Date and Time
Discharge Date/Time: 07/19/24 15:06
Print Language: KAZAKH
== END 2024-07-19 15:06 | disposition home or self-care (01) | DRG 809 ==
LOC: 2 SOUTH 01:41
PROVIDERS: ADMITTING PHYSICIAN Hospitalist; ATTENDING PHYSICIAN Hospitalist; CONSULT PHYSICIAN Internal Medicine; EMERGENCY PHYSICIAN Emergency Medicine; FAMILY PHYSICIAN Internal Medicine; OTHER PHYSICIAN Internal Medicine Hematology & Oncology
PROC: 30283B1 Transfusion of Nonautologous 4-Factor Prothrombin Complex Concentrate into Vein, Percutaneous Approach (ICD-10-PCS; 2024-07-18)
PROC: 30233N1 Transfusion of Nonautologous Red Blood Cells into Peripheral Vein, Percutaneous Approach (ICD-10-PCS; 2024-07-18)
PROC: 0DB48ZX Excision of Esophagogastric Junction, Via Natural or Artificial Opening Endoscopic, Diagnostic (ICD-10-PCS; 2024-07-19)
PROC: 0DB78ZX Excision of Stomach, Pylorus, Via Natural or Artificial Opening Endoscopic, Diagnostic (ICD-10-PCS; 2024-07-19)
PROC: 0DB68ZX Excision of Stomach, Via Natural or Artificial Opening Endoscopic, Diagnostic (ICD-10-PCS; 2024-07-19)
PROC: 0DJD8ZZ Inspection of Lower Intestinal Tract, Via Natural or Artificial Opening Endoscopic (ICD-10-PCS; 2024-07-19)
DX: D61.810 Antineoplastic chemotherapy induced pancytopenia (principal); C25.9 Malignant neoplasm of pancreas, unspecified; C78.7 Secondary malignant neoplasm of liver and intrahepatic bile duct; D68.32 Hemorrhagic disorder due to extrinsic circulating anticoagulants; K76.0 Fatty (change of) liver, not elsewhere classified; E11.9 Type 2 diabetes mellitus without complications; I10 Essential (primary) hypertension; D62 Acute posthemorrhagic anemia; G62.0 Drug-induced polyneuropathy; K22.89 Other specified disease of esophagus; E78.00 Pure hypercholesterolemia, unspecified; G47.33 Obstructive sleep apnea (adult) (pediatric); T45.1X5A Adverse effect of antineoplastic and immunosuppressive drugs, initial encounter; T45.515A Adverse effect of anticoagulants, initial encounter; K57.30 Diverticulosis of large intestine without perforation or abscess without bleeding; K44.9 Diaphragmatic hernia without obstruction or gangrene; K31.89 Other diseases of stomach and duodenum; K29.70 Gastritis, unspecified, without bleeding; K64.8 Other hemorrhoids; R19.5 Other fecal abnormalities; Z79.01 Long term (current) use of anticoagulants; Z79.84 Long term (current) use of oral hypoglycemic drugs; Z79.899 Other long term (current) drug therapy; Z86.79 Personal history of other diseases of the circulatory system; Z86.010 Personal history of colon polyps; Z88.0 Allergy status to penicillin
CPT/HCPCS: 88305; 80048; 80053; 82607; 82728; 82746; 82962; 83036; 83540; 83550; 85014; 85018; 85025; 85027; 85610; 85730; 86850; 86900; 86901; 86920; 88342; 96374; 99285; J7168; P9016

== ENCOUNTER 2024-09-09 10:16 | Emergency (ER) | payer MEDICARE, OTHER, SELFPAY ==
[2024-09-09] VITALS (18 sets, daily range): BP systolic 115–143; BP diastolic 62–95
--- NOTE | 2024-09-09 10:30 | ED.GENMED ---
History of Present Illness
General
Chief Complaint: Abnormal Lab Value
Source: patient
Exam Limitations: none
Time Seen by Provider: 09/09/24 10:30
Nursing documentation reviewed up to this point in time: agreed with
History of Present Illness
History of Present Illness:
Patient is a 68-year-old male with pancreatic cancer stage IV currently being treated at [place] [facility]. Patient is presently receiving chemotherapy he has for the past 6 months 11 treatments He is due for chemo this coming Wednesday. He was sent here
for low hemoglobin of 6.5 . Patient feels mildly tired. Patient denies any black or dark stools. In July patient was here for symptomatic anemia and had black stools at that time however had normal endoscopy and colonoscopy. He had an
outpatient capsule endoscopy which also did not show any bleeding.
Past History
Past History
ED Past Medical History: HTN, Hypercholesterolemia, NIDDM and Other (fatty liver)
Review of Systems
Review of Systems
Allergies reviewed?: Yes
Other source history: family
All Other Systems: ROS reviewed and negative except as documented in HPI and ROS
Constitutional: Reports fatigue; Denies fever
EENT: Reports no symptoms
Respiratory: Reports no symptoms
Cardiac: Reports no symptoms
ABD/GI: Reports no symptoms; Denies abdominal pain, nausea, vomiting, diarrhea or black stools
: Reports no symptoms
Musculoskeletal: Reports no symptoms
Skin: Reports no symptoms
Psychiatric: Reports no symptoms
Phy Exam
General Physical Exam
General Presentation: no apparent distress
General age: appears stated age
General Skin: warm and dry
General Habitus: normal
General Mental: alert
General Hydration: appears well hydrated
Cardiovascular Exam
Cardiovascular Exam: regular rate/rhythm, no murmur and normal peripheral pulses
Pulmonary Exam
Pulmonary Exam: lungs clear and no respiratory distress
Gastrointestinal Exam
Gastrointestinal Exam: non tender, soft and other (brown stool heme neg)
Course
Orders/Labs/Results
Orders:
Orders
09/09/24 10:31
IV Insert/Care/Rem.- Treatment PRN
09/09/24 10:52
Type+Screen Urgent
Complete Blood Count/With Diff Urgent
Comprehensive Metabolic Panel Urgent
09/09/24 11:39
* Blood Bank Products Urgent
'[facility] Orders: Eh/jarett
Blood Bank Products: *Packed RBC Leuko(PRBC's)
Quantity: 2
Transfuse Today: Yes
Reason: Anemia
09/09/24 11:40
IV Insert/Care/Rem.- Treatment PRN
Abnormal Lab Results
09/09/24
10:52
RBC 2.29 L 10^6/uL
(4.70-6.10)
Hgb 6.6 L* g/dL
(13.0-18.0)
Hct 20.9 L* %
(39.0-52.0)
MCHC 31.6 L g/dL
(33.0-37.0)
RDW 18.8 H %
(11.5-14.5)
Plt Count 94 L 10^3/uL
(130-400)
MPV 11.5 H fL
(7.4-10.4)
Abs Immat Gran (auto) 0.1 H 10^3/uL
(0-0.05)
Absolute Lymphs (auto) 0.8 L 10^3/uL
(1.2-3.4)
Absolute Monos (auto) 1.1 H 10^3/uL
(0.1-0.6)
Immature Gran % 1.1 H %
(0-0.5)
Lymphocytes % 13.5 L %
(20.5-51.1)
Monocytes % 18.4 H %
(1.7-9.3)
Glucose 130 H mg/dl
(70-99)
Alkaline Phosphatase 138 H U/L
(38-126)
Total Protein 6.1 L g/dl
(6.3-8.2)
Crossmatch IS Only See Detail
09/09/24 10:52
09/09/24 10:52
Vital Signs
Initial and Last Documented VS:
Initial Vital Signs
Temp Pulse Resp BP Pulse Ox
97.6 F 72 18 138/70 100
09/09/24 10:17 09/09/24 10:17 09/09/24 10:17 09/09/24 10:17 09/09/24 10:17
Last Documented Vital Signs
Temp Pulse Resp BP Pulse Ox
97.8 F 71 18 129/69 100
09/09/24 15:32 09/09/24 15:32 09/09/24 15:32 09/09/24 15:32 09/09/24 15:32
MDM/Problems Addressed
Differential Diagnosis Includes:
Not limited to anemia pancreatic cancer
MDM/Problems Addressed:
Patient is a 68-year-old male with stage IV pancreatic cancer currently receiving chemotherapy treated at [place] [facility] presents with low hemoglobin. Patient's hemoglobin today is 6.6 he denies any dark or black stools. He has brown heme-negative
stool. Is nontachycardic no acute distress nonhypoxic stable vital signs. Will plan to transfuse 2 units of packed red blood cells then stable for discharge home patient is scheduled for his chemotherapy on Wednesday. Platelets are 94,000 which is
improved from Jul 2024.
Chronic conditions affecting care:
Pancreatic cancer
*Critical Care Note
Total Time (30-74mins, 75-104mins- exclusive of procedures): Not Applicable
ED Attending Note
-
Portions of this chart may have been created with voice recognition software.� Occasional wrong word or��sound alike� substitutions may have occurred due to the inherent limitations of voice recognition software.
Discharge Plan
Departure
Patient Disposition: Home (Routine Discharge)
Date of Disposition: 09/09/24
Time of Disposition: 15:17
Patient with high blood pressure during this ER visit?: No
Condition: Fair
Covid-19: Not Applicable
Discharge Problem:
Anemia
Prescriptions:
No Action
sildenafil 50 mg Tablet
50 mg PO DAILYPRN PRN (Reason: ED )
lisinopril-hydrochlorothiazide 20-12.5 mg Tablet
1 tab PO HS
folic acid 1 mg Tablet
1 mg PO DAILY
mwmlzfsdlxeg-jkxeonic-bpkumj Tablet
1 tab PO DAILY
rosuvastatin 10 mg Tablet
10 mg PO HS
cyanocobalamin (vitamin B-12) 1,000 mcg Capsule
1,000 mcg PO DAILY
metformin 500 mg Tablet Extended Release 24 Hr
1,000 mg PO DAILY
oxycodone 10 mg Tablet
10 mg PO Q4HPRN PRN (Reason: severe pain) Qty: 30 0RF
polyethylene glycol 3350 17 gram/dose powder
17 g PO DAILY Qty: 510 0RF
Eliquis 5 mg Tablet
5 mg PO BID
Referrals:
Emmanuel Latham MD [Family Provider] -
Activity Restrictions/Additional Instructions:
Your hemoglobin today was 6.6. You were transfused 2 units of packed red blood cells. Follow-up with your oncologist as scheduled and return if any worsening of symptoms.
Have your blood work checked as per your oncologist
Interventions
Interventions:
*Risk Screen - Suicide Last Done: 09/09/24 10:17
*General Assessment Last Done: 09/09/24 10:17
*Neglect/Abuse Screening Last Done: 09/09/24 10:17
ED- Fall Risk Assessment Last Done: 09/09/24 10:47
*ED COVID-19 Vaccine History Last Done: 09/09/24 10:41
Discharge Date and Time
Print Language: FRISIAN
[2024-09-09 11:05] LABS: % Basophils 0.7 % (0-2); % Eosinophils 0.7 % (0-6); % Immature Granulocytes 1.1 % (0-0.5); % Lymphocytes 13.5 % (20.5-51.1); % Monocytes 18.4 % (1.7-9.3); % Neutrophils 65.6 % (42.2-75.2); Absolute Immature Granulocytes 0.1 10^3/uL (0-0.05); Absolute Lymphocytes 0.8 10^3/uL (1.2-3.4); Absolute Monocytes 1.1 10^3/uL (0.1-0.6); Absolute Neutrophils 3.8 10^3/uL (1.4-6.5); Hematocrit 20.9 % (39.0-52.0); Hemoglobin 6.6 g/dL (13.0-18.0); Mean Corp Hgb Conc. 31.6 g/dL (33.0-37.0); Mean Corpuscular Hgb 28.8 pg (27.0-31.0); Mean Corpuscular Volume 91.3 fL (80.0-94.0); Mean Platelet Volume 11.5 fL (7.4-10.4); Nucleated Red Blood Cells % 0 % (-); Platelet Count 94 10^3/uL (130-400); Red Blood Cell Count 2.29 10^6/uL (4.70-6.10); Red Cell Dist. Width 18.8 % (11.5-14.5); White Blood Cell Count 5.7 10^3/uL (4.8-10.8)
[2024-09-09 11:25] LABS: ALT (SGPT) 27 U/L (0-50); AST (SGOT) 29 U/L (17-59); Albumin 3.8 g/dl (3.5-5.0); Alkaline Phosphatase 138 U/L (38-126); Blood Urea Nitrogen 17 mg/dl (9-20); Calcium 8.9 mg/dl (8.4-10.2); Carbon Dioxide 26 mmol/L (22-30); Chloride 105 mmol/L (98-107); Glucose 130 mg/dl (70-99); Sodium 142 mmol/L (135-145); Total Bilirubin 0.3 mg/dl (0.2-1.3); Total Protein 6.1 g/dl (6.3-8.2); eGFR > 60.00
== END 2024-09-09 18:38 | disposition home or self-care (01) ==
LOC: EMR 10:16
PROVIDERS: Nurse Practitioner; EMERGENCY PHYSICIAN Emergency Medicine; FAMILY PHYSICIAN Internal Medicine
DX: D64.9 Anemia, unspecified (principal); C25.9 Malignant neoplasm of pancreas, unspecified; E11.40 Type 2 diabetes mellitus with diabetic neuropathy, unspecified; I10 Essential (primary) hypertension; E78.00 Pure hypercholesterolemia, unspecified; K76.0 Fatty (change of) liver, not elsewhere classified; Z79.84 Long term (current) use of oral hypoglycemic drugs; Z79.899 Other long term (current) drug therapy; Z88.0 Allergy status to penicillin
CPT/HCPCS: 99285; 36430; 80053; 85025; 86850; 86900; 86901; 86920; P9016; P9040